=== PATIENT | female | born 2005 | race Caucasian/White ===

== ENCOUNTER 2024-02-28 19:55 | Emergency (ER) | payer OTHER ==
--- OUTSIDE RECORDS SUMMARY | 2024-02-28 19:59 | XMS REPORT | Continuity of Care Document ---
Author Name Unknown Address [address] [facility] [address] [place] [address] [facility] thconnect Address [address] [facility] [address] [place] [address] Care Team Providers Care [employer] Name Role Phone Memo Hwang Primary Care Physician [phone] XANDER HANNA Attending Clinician Unavailable Xander Burnham Attending Clinician [phone] Unknown, Attending Attending Clinician Unavailab Collins Attending Clinician UnavailShea Beltran MD Attending Clinician +- [phone] Alaina Booth MD Attending Clinician [phone] ALAINA BOOTH Attending Clinician Unavailable Alton Malloy Attending Clinician Unavailable Bryce Schrader Attending Clinician Unavailable SHEA DOMINGUEZ Attending Clinician ROMA Doss III Attending Clinician Unavaillida e Provider, [facility] Attending Clinician Unavailable Roma Lovell MD Attending Clinician [phone] UNKNOWN, ATTENDING Attending Clinician Unavailab taylor Doctor Unassigned, [place] Attending Clinician U ALIRIO Luke Attending Clinician Unavailable Alirio Puckett DO Attending Clinician [phone] Rosalee Admitting Clinician UnavailAlton Pimentel Admitting Clinician Unavailable UNDEFINED Admitting Clinician Unavailable ALIRIO PUCKETT Admitting Clinician Unavailable Payers Payer Name Policy Type Policy Number Effective Date Expirati on Date Source BCBS [facility] [id number] 2022 00:00:[place] [id number] 2022 00:00:00 Problems Condition Name Condition Details Condition Category Status Onset Date Resolution Date Last Treatment Date Treating Clinician Comments Source Hyperlipid emia Hyperlipid emia Problem Active 05-01 00:00: 00 [facility] Urticaria due to cold Urticaria Due to Cold Problem Active 07-24 00:00: 00 [facility] Migraine Migraine Problem Active 06-14 00:00: 00 [facility] Moderate persistent asthma Moderate Persistent Asthma Problem Active 06-14 00:00: 00 [facility] No known active problems No known active problems Disease [facility] Allergies, Adverse Reactions, Alerts Allergy Name Allergy Type Status Severity Reaction(s) Onset Date Inactive Date Treating Clinician Comments Source No Known Allergie s DA Active U 4 00:00: 00 [facility] CAT DANDER Allergy to substanc e Active Itching, Respiratory distress [facility] Dog Dander Allergy to substanc e Active Itching, Respiratory distress [facility] NO KNOWN ALLERGIE S Drug Class Active [facility] Social History Social Habit Start Date Stop Date Quantity Comments Source [facility] of Social function 2024-02-27 00:00:00 2024-02-27 00:00:00 [facility] Exposure to SARS-CoV-2 (event) 2022-12-12 00:00:00 2022-12-22 08:43:00 Not sure [facility] Tobacco use and exposure 2022-10-27 00:00:00 2022-10-27 00:00:00 Smokeless tobacco non-user [facility] Sex Assigned At 2005 00:00:00 2005 00:00:00 [facility] Smoking Status Start Date Stop Date Source Tobacco smoking consumption unknown [facility] Never smoked tobacco [facility] Medications Ordered Medication Name Filled Medication Name Start Date Stop Date Current Medication? Ordering Clinician Indication Dosage Frequency Signature (SIG) Comments Components Source codeine-gua ifenesin 10-100 mg/5 mL oral solution 02-26 00:00: 00 03-06 04:59 :00 Yes [id number] 5mL Take 5 mL by mouth every 6 (six) hours as needed for Cough for up to 7 days. Indication s: acute pain [facility] albuterol (PROVENTIL) 2.5 mg /3 mL (0.083 %) nebulizer solution 2.5 mg 04-21 22:00: 00 04-21 21:07 :00 No [id number] 2.5mg [facility] methylpredn isolone sod succ (SOLU-MEDRO L) injection 125 mg 04-21 21:45: 00 04-21 21:06 :00 No [id number] 125mg [facility] ipratropium (ATROVENT) 0.02 % nebulizer solution 0.5 mg 04-21 21:45: 00 04-21 21:08 :00 No [id number] .5mg [facility] budesonide- formoteroL 80-4.5 mcg/actuati on inhaler 04-21 16:13: 40 04-21 00:00 :00 No Symbicort 80 mcg-4.5 mcg/actuat ion HFA aerosol inhaler Inhale 2 puffs twice a day by inhalation route. [facility] escitalopra m oxalate 5 mg tablet 04-21 16:13: 26 Yes escitalopr am 5 mg tablet Take 1 tablet every day by oral route for 30 days. [facility] cetirizine 10 mg tablet 04-21 16:13: 26 Yes cetirizine 10 mg tablet Take 1 tablet every day by oral route in the morning for 90 days. Allergy medication [facility] Fluticasone Propionate 250 mcg/actuati on inhalation disk 04-21 16:13: 26 Yes Flovent Diskus 250 mcg/actuat ion powder for inhalation Inhale 1 puff twice a day by inhalation route. [facility] Fluticasone Propionate 250 mcg/actuati on inhalation disk 04-21 16:13: 26 Yes Flovent Diskus 250 mcg/actuat ion powder for inhalation Inhale 1 puff twice a day by inhalation route. [facility] albuterol 2.5 mg /3 mL (0.083 %) nebulizer solution 04-21 00:00: 00 Yes [id number] 2.5mg Inhale 3 mL every 4 (four) hours as needed for Shortness of Breath or Wheezing. [facility] ipratropium 0.02 % nebulizer solution 04-21 00:00: 00 Yes [id number] .5mg Inhale 2.5 mL every 4 (four) hours as needed for Wheezing or Shortness of Breath. [facility] montelukast (SINGULAIR) 10 mg tablet 04-21 00:00: 00 Yes [id number] 10mg Take 1 tablet by mouth in the morning. [facility] gabapentin 300 mg capsule 03-16 00:00: 00 Yes TAKE 1 CAPSULE BY MOUTH EVERY 8 HOURS [facility] meloxicam 15 mg tablet 03-16 00:00: 00 Yes 15mg Take 1 tablet by mouth in the morning. [facility] azithromyci n 250 mg tablet 12-22 00:00: 00 04-21 00:00 :00 No [id number] 250mg Take 1 tablet by mouth in the morning. [facility] EPINEPHrine 1:1,000 (1 mg/mL) (ADRENALIN) injection 0.3 mg 12-10 06:00: 00 12-10 17:59 :00 No [id number] .3mg [facility] methylPREDN ISolone sod succ (SOLU-MEDRO L (PF)) injection 125 mg 12-10 06:00: 00 12-10 17:59 :00 No [id number] 125mg [facility] diphenhydrA MINE (BENADRYL) 12.5 mg/5 mL solution 25 mg 12-10 06:00: 00 12-10 17:59 :00 No [id number] 25mg [facility] albuterol (PROVENTIL) 2.5 mg /3 mL (0.083 %) nebulizer solution 2.5 mg 12-10 06:00: 00 12-10 17:59 :00 No [id number] 2.5mg [facility] ondansetron 4 mg disintegrat ing tablet 2021-11 00:00: 00 12-22 00:00 :00 No [id number] 4mg Take 1 tablet by mouth every 8 (eight) hours as needed for Nausea and Vomiting (N/V). [facility] oseltamivir (TAMIFLU) 75 mg capsule 2021-11 00:00: 00 11-02 05:59 :00 No [id number] 75mg Take 1 capsule by mouth in the morning and 1 capsule in the evening. Do all this for 5 days. [facility] albuterol 2.5 mg /3 mL (0.083 %) nebulizer solution 2021-11 00:00: 00 Yes [id number] 2.5mg Inhale 3 mL every 4 (four) hours. May also nebulize one extra every 6 hours. [facility] methylPREDN ISolone (MEDROL, HELENA,) 4 mg tablets 2021-11 00:00: 00 10-27 00:00 :00 No [id number] Take by mouth SEE-INSTRU CTIONS. follow package directions [facility] albuterol sulfate HFA 90 mcg/actuati on aerosol inhaler INHALE 2 PUFFS BY MOUTH EVERY 4 HOURS NEEDED albuterol sulfate HFA 90 mcg/actuati on aerosol inhaler INHALE 2 PUFFS BY MOUTH EVERY 4 HOURS NEEDED No albuterol sulfate HFA 90 mcg/actuat ion aerosol inhaler INHALE 2 PUFFS BY MOUTH EVERY 4 HOURS NEEDED [facility] bromphenira mine-pseudo ephedrine-D M 2 mg-30 mg-10 mg/5 mL oral syrup TAKE 10 ML BY MOUTH EVERY 4 HOURS NEEDED bromphenira mine-pseudo ephedrine-D M 2 mg-30 mg-10 mg/5 mL oral syrup TAKE 10 ML BY MOUTH EVERY 4 HOURS NEEDED No bromphenir amine-pseu doephedrin e-DM 2 mg-30 mg-10 mg/5 mL oral syrup TAKE 10 ML BY MOUTH EVERY 4 HOURS NEEDED [facility] Estarylla 0.25 mg-35 mcg tablet TAKE 1 TABLET BY MOUTH EVERY DAY Estarylla 0.25 mg-35 mcg tablet TAKE 1 TABLET BY MOUTH EVERY DAY No Estarylla 0.25 mg-35 mcg tablet TAKE 1 TABLET BY MOUTH EVERY DAY [facility] montelukast 10 mg tablet Take 1 tablet every day by oral route for 30 days. montelukast 10 mg tablet Take 1 tablet every day by oral route for 30 days. No 1 Q1D montelukas t 10 mg tablet Take 1 tablet every day by oral route for 30 days. [facility] prednisone 20 mg tablet TAKE 2 TABLETS BY MOUTH DAILY prednisone 20 mg tablet TAKE 2 TABLETS BY MOUTH DAILY No prednisone 20 mg tablet TAKE 2 TABLETS BY MOUTH DAILY [facility] Wixela Inhub 250 mcg-50 mcg/dose powder for inhalation Inhale 1 puff twice a day by inhalation route for 30 days. Wixela Inhub 250 mcg-50 mcg/dose powder for inhalation Inhale 1 puff twice a day by inhalation route for 30 days. No 1puff(s ) BID Wixela Inhub 250 mcg-50 mcg/dose powder for inhalation Inhale 1 puff twice a day by inhalation route for 30 days. [facility] Vital Signs Vital Name Observation Time Observation Value Comments S giovani Systolic blood pressure 2024-02-27 22:23:00 135 mm[Hg] [place] [facility] Diastolic blood pressure 2024-02-27 22:23:00 84 mm[Hg] [place] [facility] Heart rate 2024-02-27 22:23:00 99 /min [facility] Body temperature 2024-02-27 22:23:00 36.61 Freda [facility] Body height 2024-02-27 22:23:00 167.6 cm [facility] Body weight 2024-02-27 22:23:00 89.359 kg [facility] BMI 2024-02-27 22:23:00 31.80 kg/m2 [facility] Oxygen saturation in Arterial blood by Pulse oximetry 2024-02-27 22:23:00 96 /min [facility] BP Systolic 2024-02-21 00:00:00 117 mm[Hg] [facility] Height 2024-02-21 00:00:00 66 [in_i] [facility] BMI (Body Mass Index) 2024-02-21 00:00:00 32.8 kg/m2 [facility] ly Practice BP Diastolic 2024-02-21 00:00:00 77 mm[Hg] [facility] Body Weight 2024-02-21 00:00:00 203 [facility] 2023-09-07 00:00:00 187 [lb_av] [facility] BP Diastolic 2023-09-07 00:00:00 80 mm[Hg] [facility] BP Systolic 2023-09-07 00:00:00 120 mm[Hg] [facility] Height 2023-09-07 00:00:00 66 [in_i] [facility] BMI (Body Mass Index) 2023-09-07 00:00:00 30.2 kg/m2 [facility] BP Diastolic 2023-05-12 00:00:00 77 mm[Hg] [facility] Height 2023-05-12 00:00:00 66 [in_i] [facility] BMI (Body Mass Index) 2023-05-12 00:00:00 29 kg/m2 [facility] Practice BP Systolic 2023-05-12 00:00:00 105 mm[Hg] [facility] Body Weight 2023-05-12 00:00:00 179.9 [facility]lb_av[facility] Diastolic 2023-04-27 00:00:00 74 mm[Hg] [facility] Height 2023-04-27 00:00:00 66 [in_i] [facility] BMI (Body Mass Index) 2023-04-27 00:00:00 27.6 kg/m2 [facility] Practice BP Systolic 2023-04-27 00:00:00 120 mm[Hg] [facility] Body Weight 2023-04-27 00:00:00 171 [lb_av] [facility] Practice Heart rate 2023-04-21 21:32:00 112 /min [facility] Respiratory rate 2023-04-21 21:32:00 17 /min [facility] Oxygen saturation in Arterial blood by Pulse oximetry 2023-04-21 21:32:00 96 /min [facility] Oxygen saturation in Arterial blood by Pulse oximetry 2023-04-21 21:05:00 95 /min [facility] Systolic blood pressure 2023-04-21 21:00:00 106 mm[Hg] [facility] Diastolic blood pressure 2023-04-21 21:00:00 68 mm[Hg] [facility] Heart rate 2023-04-21 21:00:00 140 /min [facility] Respiratory rate 2023-04-21 21:00:00 38 /min [facility] Body height 2023-04-21 21:00:00 167.6 cm [facility] Body weight 2023-04-21 21:00:00 78.608 kg [facility] BMI 2023-04-21 21:00:00 27.97 kg/m2 [facility] Body temperature 2023-04-21 21:00:00 37.33 Freda [facility] BP Diastolic 2023-04-20 00:00:00 60 mm[Hg] [facility] Practice Height 2023-04-20 00:00:00 66 [in_i] [facility] BMI (Body Mass Index) 2023-04-20 00:00:00 27.6 kg/m2 [facility] Practice BP Systolic 2023-04-20 00:00:00 101 mm[Hg] [facility] Body Weight 2023-04-20 00:00:00 171 [lb_av] [facility] Practice Systolic blood pressure 2022-12-22 14:55:00 120 mm[Hg] [facility] Diastolic blood pressure 2022-12-22 14:55:00 76 mm[Hg] [facility] Heart rate 2022-12-22 14:55:00 86 /min [facility] Body temperature 2022-12-22 14:55:00 36.61 Freda [facility] Respiratory rate 2022-12-22 14:55:00 18 /min [facility] Body weight 2022-12-22 14:55:00 80.287 kg [facility] Oxygen saturation in Arterial blood by Pulse oximetry 2022-12-22 14:55:00 96 /min [facility] Body temperature 2022-12-11 03:01:00 37.11 Freda [facility] Respiratory rate 2022-12-11 03:01:00 17 /min [facility] Body height 2022-12-11 03:01:00 167.6 cm [facility] Body weight 2022-12-11 03:01:00 76.204 kg [facility] BMI 2022-12-11 03:01:00 27.12 kg/m2 [facility] Body mass index (BMI) [Percentile] Per age and sex 2022-12-11 03:01:00 88.44 % [facility] Oxygen saturation in Arterial blood by Pulse oximetry 2022-12-11 03:01:00 93 /min [facility] Systolic blood pressure 2022-12-11 03:01:00 143 mm[Hg] [facility] Diastolic blood pressure 2022-12-11 03:01:00 85 mm[Hg] [facility] Heart rate 2022-12-11 03:01:00 145 /min [facility] Systolic blood pressure 2022-10-27 16:50:00 102 mm[Hg] [facility] Diastolic blood pressure 2022-10-27 16:50:00 66 mm[Hg] [facility] Heart rate 2022-10-27 16:49:00 115 /min [facility] Body temperature 2022-10-27 16:49:00 36.83 Freda [facility] Respiratory rate 2022-10-27 16:49:00 18 /min [facility] Body height 2022-10-27 16:49:00 167.6 cm [facility] Body weight 2022-10-27 16:49:00 76.522 kg [facility] BMI 2022-10-27 16:49:00 27.23 kg/m2 [facility] Body mass index (BMI) [Percentile] Per age and sex 2022-10-27 16:49:00 88.89 % [facility] Oxygen saturation in Arterial blood by Pulse oximetry 2022-10-27 16:49:00 97 /min [facility] BP Diastolic 2022-09-18 00:00:00 76 mm[Hg] [facility] Height 2022-09-18 00:00:00 66 [in_i] [facility] BMI (Body Mass Index) 2022-09-18 00:00:00 27.1 kg/m2 [facility] BP Systolic 2022-09-18 00:00:00 122 mm[Hg] [facility] Body Weight 2022-09-18 00:00:00 168 [lb_av] [facility] Heart rate 2022-08-22 03:02:00 88 /min [facility] Respiratory rate 2022-08-22 03:02:00 15 /min [facility] Oxygen saturation in Arterial blood by Pulse oximetry 2022-08-22 03:02:00 95 /min [facility] Systolic blood pressure 2022-08-22 03:00:00 108 mm[Hg] [facility] Diastolic blood pressure 2022-08-22 03:00:00 88 mm[Hg] [facility] Body temperature 2022-08-22 01:59:00 37.33 Freda [facility] Body height 2022-08-22 01:59:00 167.6 cm [facility] Body weight 2022-08-22 01:59:00 71.668 kg [facility] BMI 2022-08-22 01:59:00 25.50 kg/m2 [facility] Body mass index (BMI) [Percentile] Per age and sex 2022-08-22 01:59:00 83.11 % [facility] BP Systolic 2021-08-08 00:00:00 130 mm[Hg] [facility] Body Weight 2021-08-08 00:00:00 172 [lb_av] [facility] BP Diastolic 2021-08-08 00:00:00 82 mm[Hg] [facility] Height 2021-08-08 00:00:00 66 [in_i] [facility] BMI (Body Mass Index) 2021-08-08 00:00:00 27.8 kg/m2 [facility] BP Diastolic 2020-07-24 00:00:00 75 mm[Hg] [facility] BP Systolic 2020-07-24 00:00:00 113 mm[Hg] [facility] BP Diastolic 2019-06-14 00:00:00 80 mm[Hg] [facility] Height 2019-06-14 00:00:00 66 [in_i] [facility] BMI (Body Mass Index) 2019-06-14 00:00:00 25.8 kg/m2 [facility] BP Systolic 2019-06-14 00:00:00 124 mm[Hg] [facility] Body Weight 2019-06-14 00:00:00 160 [lb_av] [facility] Procedures Procedure Date / Time Performed Performing Clinician Source POCT MOLECULAR STREP 2024-02-27 22:53:00 Unknown, Lindy connors [facility] SPRIOMETRY: PRE AND POST BRONCHODILATION 2023-04-23 00:00:00 [facility] spirometry, pre and post bronchodilation 2023-04-23 00:00:00 [facility] Pelvis Repair 2023-03-08 00:00:00 [facility] [id number] 2023-03-06 00:00:00 [facility] [id number] 2023-03-06 00:00:00 [facility] POCT MOLECULAR STREP 2022-12-22 15:20:00 Shea Salazar [facility] POCT MOLECULAR FLU 2022-10-27 16:51:00 Unknown, Attend ing [facility] ASSIGNMENT OF BENEFITS 2022-10-27 16:40:10 Docto r Unassigned, [place] [facility] XR CHEST 1 VW 2022-08-22 02:13:53 Alirio Puckett [facility] Other [facility] Plan of Care Planned Activity Planned Date Details Comments Source Future Appointment 2024-05-01 14:00:00 Sarah burch, [address]; [address], [place] [address] [facility] Instructions [facility] En[facility] Start Date/Time End Date/Time Encounter Type Admission Type Attending Clinicians Care Facility Care Department Encounter ID Source 2024-02-27 17:20:00 2024-02-27 18:20:15 Outpatient R XANDER HANNA [facility] [id number] [facility] 2024-02-27 17:20:00 2024-02-27 18:20:15 Urgent Care Xander Hanna Unknown, [facility] 1..840.114 [id number] [facility] 2024-02-21 00:00:00 2024-02-21 00:00:00 DEL Castellon: [address], [address], [place] [address] , Ph. VFP [place] - [facility] - [place] - KAREEM_KELLYU_[facility] ([facility]) [id number] [facility] e 2024-01-03 00:00:00 2024-01-03 00:00:00 Outpatient Rachel ROSA VFP VFP [id number] [facility] Pract[facility] e 2023-12-13 00:00:00 2023-12-13 00:00:00 Shea Schneider [facility] 1..840.114 [id number] [id number] [facility] 2023-10-02 00:00:00 2023-10-02 00:00:00 Outpatient Fiesinger_T _HOU_MD VFP VFP [id number] [facility] 2023-09-07 00:00:00 2023-09-07 00:00:00 Outpatient Fiesinger_T _HOU_MD VFP VFP [id number] [facility] 2023-09-07 00:00:00 2023-09-07 00:00:00 Outpatient VFP VFP [id number] [facility] 2023-09-07 00:00:00 2023-09-07 00:00:00 DEL Castellon: [address] [place] [phone] , Ph. VFP [place] - [facility] - [place] - VM_HOU_[facility] ([place]) [id number] [facility] 2023-06-14 00:00:00 2023-06-14 00:00:00 Outpatient Fiesinger_T _HOU_MD VFP VFP [id number] [facility] 2023-05-29 00:00:00 2023-05-29 00:00:00 Outpatient Fiesinger_T _HOU_MD VFP VFP [id number] [facility] 2023-05-12 00:00:00 2023-05-12 00:00:00 Outpatient Fiesinger_T _HOU_MD VFP VFP [id number] [facility] 2023-05-12 00:00:00 2023-05-12 00:00:00 Outpatient VFP VFP [id number] [facility] 2023-05-12 00:00:00 2023-05-12 00:00:00 DEL Castellon: [address] [place] [phone] , Ph. VFP [place] [facility] - [place] - VM_HOU_[facility] ([facility]) [id number] [facility] 2023-04-30 00:00:2023-04-30 00:00:00 Refill Alaina Booth [facility] [id number] [id number] [id number] [facility] 2023-04-27 00:00:00 2023-04-27 00:00:00 Outpatient Fiesinger_T _HOU_MD VFP [facility] [id number] [facility] 2023-04-27 00:00:00 2023-04-27 00:00:00 Sarah Seth, PA: [address] [place], [place] [phone] , [facility]. [facility] - [place] - VM_HOU_[facility] ([facility]) [id number] [facility] 2023-04-23 00:00:00 2023-04-23 00:00:00 Outpatient Fiesinger_T _HOU[facility] [id number] [facility] 2023-04-23 00:00:00 2023-04-23 00:00:00 Sarah Seth PA: [address] [place] [phone] , [facility]. [facility] - [place] - VM_HOU_[facility] ([facility]) [id number] [facility] 2023-04-21 15:40:00 2023-04-21 16:23:44 Outpatient R ALAINA BOOTH [facility] [id number] [facility] 2023-04-21 15:40:00 2023-04-21 16:23:44 Urgent Care Alaina Booth Unknown, Attending [facility] [id number] 350.1.13.10 [id number] [id number] [facility] 2023-04-21 00:00:00 2023-04-21 00:00:00 Alaina Wilkins [facility] [id number] [id number] [id number] [facility] 2023-04-20 00:00:00 2023-04-20 00:00:00 Outpatient Fiesinger_T _HOU_MD VFP VFP [id number] [facility] 2023-04-20 00:00:00 2023-04-20 00:00:00 Outpatient Fiesinger_T _HOU_MD VFP VFP [id number] [facility] 2023-04-20 00:00:00 2023-04-20 00:00:00 DEL Castellon: [address] [place] [address] [address], [place] [address] , Ph. VFP [place] - [facility] [place] - VM_HOU_[facility] ([facility]) [id number] [facility] 2023-04-17 00:00:00 2023-04-17 00:00:00 Outpatient Fiesinger_T _HOU_MD VFP VFP [id number] [facility] 2023-04-17 00:00:00 2023-04-17 00:00:00 Outpatient VFP VFP [id number] [facility] 2023-04-17 00:00:00 2023-04-17 00:00:00 Outpatient Fiesinger_T _HOU_MD VFP VFP [id number] [facility] 2023-04-14 00:00:00 2023-04-14 00:00:00 Outpatient Fiesinger_T _HOU_MD VFP VFP [id number] [facility] 2023-03-12 00:00:00 2023-03-12 00:00:00 Shea Schneider [facility] [id number] [id number] [id number] [facility] 2023-03-04 18:35:00 2023-03-07 13:43:00 Inpatient EM Alton Malloy [facility] [id number] [facility] 2023-03-04 09:00:00 2023-03-04 17:00:00 Emergency EM Bryec Schrader [facility] [id number] [facility] 2023-02-16 00:00:00 2023-02-16 00:00:00 Refill Kimberly cook [facility] 1.2.840.114 350.1.13.10 4.2.7.2.686 [id number] [facility] 2023-01-22 00:00:00 2023-01-22 00:00:00 Refill Kimberly cook [facility] 1.2840.114 350.1.13.10 4.2.7.2.686 [id number] [facility] 2022-12-27 00:00:00 2022-12-27 00:00:00 Outpatient Fiesinger_T VFP VFP [id number] [facility] 2022-12-22 08:40:00 2022-12-22 09:33:41 Outpatient R KIMBERLY COOK [facility] [id number] [facility] 2022-12-22 08:40:00 2022-12-22 09:33:41 Office Visit Kimberly cook [facility] 1.2.840.114 350.1.13.10 4.2.7.2.686 [id number] [facility] 2022-12-22 00:00:00 2022-12-22 00:00:00 Letter (Out) Kimberly cook [facility] 1.2840.114 350.1.13.10 4.2.7.2.686 [id number] [facility] 2022-12-10 20:40:00 2022-12-10 21:15:04 Outpatient R ROMA LOVELL III [facility] [id number] [facility] 2022-12-10 20:40:00 2022-12-10 21:15:04 Urgent Care Provider, [facility] Unknown, Attending Roma Lovell [facility] 1.840.114 350.1.13.10 4.2.7.2.686 [id number] [facility] 2022-12-10 20:30:00 2022-12-10 20:30:00 Outpatient R UNKNOWN, ATTENDING [facility] [id number] [facility] 2022-11-22 00:00:00 2022-11-22 00:00:00 Outpatient Fiesinger_T VFP VFP [id number] [facility] 2022-11-18 00:00:00 2022-11-18 00:00:00 Refill Alaina Booth [facility] 1.840.114 350.1.13.10 4.2.7.2.686 [id number] [facility] 2022-10-27 10:40:00 2022-10-27 11:05:11 Outpatient R ALAINA BOOTH [facility] [id number] [facility] 2022-10-27 10:40:00 2022-10-27 11:05:11 Urgent Care Alaina Booth Unknown, Attending [facility] 1.840.114 350.1.13.10 4.2.7.2.686 [id number] [facility] 2022-10-27 00:00:00 2022-10-27 00:00:00 Orders Only Doctor Unassigned, [facility] 1.84.114 350.1.13.10 4.2.7.2.686 [id number] [facility] 2022-10-27 00:00:00 2022-10-27 00:00:00 Letter (Out) Provider, [facility] 1.2.840.114 350.1.13.10 4.2.7.2.686 [id number] [facility] 2022-09-18 00:00:00 2022-09-18 00:00:00 Outpatient Fiesinger_T VFP VFP [id number] [facility] 2022-09-18 00:00:00 2022-09-18 00:00:00 Coty Hernandez MD: [id number] [facility], [address], [place] [address] , Ph. VFP [place] - [facility] - [place] - _NAOMI_Troy Chris [id number] [facility] 2022-09-15 00:00:00 2022-09-15 00:00:00 Outpatient Fiesinger_T VFP VFP [id number] [facility] 2022-09-08 00:00:00 2022-09-08 00:00:00 Outpatient Fiesinger_T VFP VFP [id number] [facility] 2022-08-21 20:56:00 2022-08-21 22:15:00 Emergency X ALIRIO PUCKETT [facility] ERT [id number] [facility] 2022-08-21 20:56:00 2022-08-21 22:15:00 Emergency Alirio Puckett [facility] 1.2.840.114 350.1.13.10 4.2.7.2.686 [id number] [facility] 2021-09-23 08:11:00 2021-09-23 08:11:00 Outpatient Fiesinger_T VFP VFP [id number] [facility] 2021-09-04 01:56:00 2021-09-04 01:56:00 Outpatient Fiesinger_T VFP VFP [id number] [facility] 2021-08-29 06:51:00 2021-08-29 06:51:00 Outpatient Fiesinger_T VFP VFP [id number] [facility] 2021-08-08 05:19:00 2021-08-08 05:19:00 Outpatient Fiesinger_T VFP VFP [id number] [facility] 2021-08-08 00:00:00 2021-08-08 00:00:00 Memo Hwang MD: [id number] [facility], [address], [place] [address] , Ph. VFP [place] [facility] - KAREEM_NAOMI_Troy woody Aries [id number] [facility] 2021-06-03 03:43:00 2021-06-03 03:43:00 Outpatient Fiesinger_T VFP VFP [id number] [facility] 2021-06-03 03:43:00 2021-06-03 03:43:00 Outpatient Fiesinger_T VFP VFP [id number] [facility] 2021-06-03 03:43:00 2021-06-03 03:43:00 Outpatient VFP VFP [id number] [facility] 2020-08-09 01:03:00 2020-08-09 01:03:00 Outpatient Fiesinger_T VFP VFP [id number] [facility] 2020-07-26 08:53:00 2020-07-26 08:53:00 Outpatient Fiesinger_T VFP VFP [id number] [facility] 2020-07-25 08:47:00 2020-07-25 08:47:00 Outpatient Fiesinger_T VFP VFP [id number] [facility] 2020-07-24 06:00:00 2020-07-24 06:00:00 Outpatient Fiesinger_T VFP VFP [id number] [facility] 2020-07-24 00:00:00 2020-07-24 00:00:00 Memo Hwang MD: [id number] [facility], [facility] [address], [place] [address] , Ph. P [place] - [facility] - [place] Chris [id number] [facility] 2020-03-08 06:51:00 2020-03-08 06:51:00 Outpatient Fiesinger_T VFP VFP [id number] [facility] 2020-02-15 04:13:00 2020-02-15 04:13:00 Outpatient Fiesinger_T VFP VFP [id number] [facility] 2020-01-30 09:30:00 2020-01-30 09:30:00 Outpatient Fiesinger_T VFP VFP [id number] [facility] 2020-01-30 09:30:00 2020-01-30 09:30:00 Outpatient VFP VFP [id number] [facility]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
[2024-02-28] MEDS ORDERED: NA CHLORIDE 0.9% 1,000 ML ONE (21:07)
[2024-02-28] MEDS ORDERED: ONDANSETRON 4 MG/2 ML VIAL ONE (21:07)
[2024-02-28] MEDS ORDERED: FAMOTIDINE 20 MG/2 ML VIAL IV ONE (21:07)
[2024-02-28 21:20] LABS: Absolute Basophils 0.1 K/uL (0-0.5); Absolute Eosinophils 0.1 K/uL (0-0.5); Absolute Lymphocytes (CBC) 3.2 K/uL (0.7-4.9); Absolute Monocytes 0.9 K/uL (0.1-1.3); Absolute Neutrophil 12.3 K/uL (1.8-8.0); Basophils % 0.4 % (0-1.3); Eosinophils % 0.5 % (0-4.4); Hematocrit 44.3 % (36.0-45.0); Hemoglobin 14.7 g/dL (12.0-15.0); Lymphocytes % 19.4 % (15.3-44.8); MCHC 33.2 g/dL (32.0-36.0); MCV 84.1 fL (80-100); Monocytes % 5.3 % (3.3-12.3); Neutrophils % 74.4 % (41.7-73.7); Nucleated Red Blood Cells % 0.1 % (0-0); Platelets 383 thou/uL (152-406); RBC Red Blood Cell Count 5.27 M/uL (3.86-4.86); Red Cell Distribution Width 13.3 % (12.1-15.2)
[2024-02-28 21:21] LABS: Specific Gravity > 1.030 (1.005-1.030)
[2024-02-28 21:23] LABS: Specific Gravity > 1.030 (1.005-1.030); Sqamous Epithelial 20-50 /HPF (None Seen); Urine Bacteria >50 /HPF (<20); Urine Bilirubin 2+ (Negative); Urine Blood Trace (Negative); Urine Clarity Extremely Turbid (Clear); Urine Color Dark-Yellow (Yellow); Urine Culture Reflex Order NOT NEEDED; Urine Glucose NEGATIVE (Negative); Urine Ketones 3+ (Negative); Urine Microscopic Reflex YN ORDER UMIC; Urine Mucus 1+ /HPF (None Seen); Urine Nitrite NEGATIVE (Negative); Urine Protein 1+ (Negative); Urine RBC 21-50 /HPF (None Seen); Urine Urobilinogen 4+ (Over) (Normal); Urine WBC 20-50 /HPF (<5)
[2024-02-28 21:32] LABS: Albumin 3.7 g/dL (3.4-5.0); Albumin/Globulin Ratio 0.8 (1.1-1.8); Anion Gap 11.7 mEq/L (5.0-15.0); Bilirubin Total 1.8 mg/dL (0.2-1.0); Globulin 4.7 g/dL (2.3-3.5); Potassium 3.7 mEq/L (3.5-5.1); Protein, Total 8.4 g/dL (6.4-8.2)
[2024-02-28] MEDS ORDERED: CEFTRIAXONE 1000 MG/VIAL ONE (21:38)
--- NOTE | 2024-02-28 21:38 | RAD REPORT ---
EXAM DESCRIPTION: RAD - Chest Single View - 02/28/2024 9:31 pm CLINICAL HISTORY: CONGESTION Chest pain. COMPARISON: No comparisons FINDINGS: Portable technique limits examination quality. The lungs are grossly clear. The heart is normal in size. No displaced fractures. IMPRESSION: No acute intrathoracic process suspected.
--- NOTE | 2024-02-28 23:16 | EDPHYS ---
Physician Documentation [facility] Name: Gudelia Mckee Age: 18 yrs Sex: Female : 2005 Arrival Date: 02/28/2024 Time: 19:55 Bed 9 Private MD: ED Physician Amanda Young HPI: 02/27 20:49 This 18 yrs old Female presents to ER via Ambulatory with complaints of Cough, ci Congestion, Nausea/Vomiting. 20:49 This 18 yrs old Female presents to ER via Ambulatory with complaints of Cough, ci Congestion, Nausea/Vomiting. 20:49 Patient is a 18-year-old female with PMH anxiety who presents to the ED with chief ci complaint cough, congestion that began on 02/16/2024. Patient has seen her PCP, to urgent cares and went to [facility] yesterday for similar complaint. Patient reports she has had nonproductive cough, went to the next level urgent care, was given cough meds and prednisone which seemed to help her symptoms but symptoms returned on Wednesday. Patient saw her PCP who started her on Singulair thinking it was due to her asthma. Patient states since Wednesday she has had cough, with nausea/vomiting. No hematemesis. Patient has lost her voice as a result of her symptoms. Denies fever, abdominal pain, diarrhea, constipation.. 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 - Infectious Disease History:: Denies. - Social history:: Smoking status: Patient/guardian denies using tobacco, Stopped _ months ago 6 Patient/guardian denies using alcohol, street drugs. ROS: 20:49 Constitutional: Negative for fever, chills, and weight loss, ci 20:49 ENT: Positive for hoarseness, sinus congestion, 20:49 Respiratory: Positive for cough, Negative for shortness of breath, wheezing, 20:49 Abdomen/GI: Positive for nausea and vomiting, Negative for diarrhea, constipation, hematemesis, Exam: 20:49 Constitutional: This is a well developed, well nourished patient who is awake, alert, ci and in no acute distress. Head/Face: Normocephalic, atraumatic. Eyes: Pupils equal round and reactive to light, extra-ocular motions intact. Lids and lashes normal. Conjunctiva and sclera are non-icteric and not injected. Cornea within normal limits. Periorbital areas with no swelling, redness, or edema. 20:49 ENT: Nares patent. No nasal discharge, no septal abnormalities noted. Tympanic membranes are normal and external auditory canals are clear. Oropharynx with no redness, swelling, or masses, exudates, or evidence of obstruction, uvula midline. Mucous membranes moist. Neck: Trachea midline, no thyromegaly or masses palpated, and no cervical lymphadenopathy. Supple, full range of motion without nuchal rigidity, or vertebral point tenderness. No Meningismus. Chest/axilla: Normal chest wall appearance and motion. Nontender with no deformity. No lesions are appreciated. Cardiovascular: Regular rate and rhythm with a normal S1 and S2. No gallops, murmurs, or rubs. Normal PMI, no JVD. No pulse deficits. Respiratory: Lungs have equal breath sounds bilaterally, clear to auscultation and percussion. No rales, rhonchi or wheezes noted. No increased work of breathing, no retractions or nasal flaring. Abdomen/GI: Soft, non-tender, with normal bowel sounds. No distension or tympany. No guarding or rebound. No evidence of tenderness throughout. Back: No spinal tenderness. No costovertebral tenderness. Full range of motion. Skin: Warm, dry with normal turgor. Normal color with no rashes, no lesions, and no evidence of cellulitis. MS/ Extremity: Pulses equal, no cyanosis. Neurovascular intact. Full, normal range of motion. Neuro: Awake and alert, GCS 15, oriented to person, place, time, and situation. Cranial nerves II-XII grossly intact. Motor strength 5/5 in all extremities. Sensory grossly intact. Cerebellar exam normal. Normal gait. Psych: Awake, alert, with orientation to person, place and time. Behavior, mood, and affect are within normal limits. 20:49 ENT: Voice: is hoarse, 20:50 ECG was reviewed by the Attending Physician. EKG shows normal sinus rhythm, HR 67, no ci acute ischemic changes. Vital Signs: 20:11 BP 132 / 96; Pulse 97; Resp 16; Temp 97.1(TE); Pulse Ox 99% on R/A; Weight 89.36 kg km8 (R); Height 5 ft. 6 in. (R); Pain 7/10; 21:18 BP 138 / 87; Pulse 83; Resp 19; Pulse Ox 96% on R/A; me1 22:00 BP 123 / 85; Pulse 81; Resp 18; Pulse Ox 97% on R/A; me1 23:00 BP 126 / 63; Pulse 78; Resp 16; Pulse Ox 99% ; me1 20:11 Body Mass Index 31.80 (89.36 kg, 167.64 cm) [facility] 20:11 Pain Scale: Adult km8 MDM: 20:17 Patient medically screened. ci 23:21 Differential Diagnosis: Bronchitis Upper Respiratory Infection Pharyngitis Otitis Media ci Asthma Exacerbation Pneumonia Other Gastritis, GERD, gastroenteritis, pancreatitis, UTI. Data reviewed: vital signs, nurses notes. 23:21 ED course: Patient arrived to the ED hemodynamically stable and in no acute distress. ci She has had URI symptoms since 02/15 that was improving, now reoccurred. Completed 20 mg prednisone for 5 days with minimal improvement. Oropharynx with no MANAGER PEOPLE, no oropharyngeal erythema edema. CXR with no consolidations or infiltrates. Patient also endorsing nausea/vomiting, she has no reproducible tenderness to palpation to the abdomen. CBC shows some leukocytosis which is likely related to recent steroid use. Lipase unremarkable, urine hCG negative. UA consistent with UTI, given a gram of Rocephin. Given prolonged symptoms of URI, will cover with cefdinir for UTI and possibly bronchitis. Noted to have a mild BENTLEY with creatinine of 1.08. She was counseled to follow-up very closely with PCP.. 23:21 Counseling: I had a detailed discussion with the patient and/or guardian regarding the ci historical points, exam findings, and any diagnostic results supporting the discharge/admit diagnosis, lab results, the need for outpatient follow up, to return to the emergency department if symptoms worsen or persist or if there are any questions or concerns that arise at home. 02/27 20:29 Order name: CBC with Diff; Complete Time: 21:30 ci 02/27 21:31 Interpretation: Abnormal: WBC 16.50; Has been on steroids, doubt infectious etiology. ci 02/27 20:29 Order name: CMP; Complete Time: 21:50 ci 02/27 21:50 Interpretation: Abnormal: CRE 1.08. ci 02/27 20:29 Order name: Lipase; Complete Time: 21:50 ci 02/27 20:29 Order name: Test, Urine; Complete Time: 21:30 ci 02/27 20:29 Order name: Urinalysis w/ reflexes; Complete Time: 21:30 ci 02/27 21:32 Interpretation: Abnormal: UBACT >50; UWBC 20-50; UESTR 500; UKET 3+. ci 02/27 20:29 Order name: COVID-19 SARS RT PCR; Complete Time: 21:50 ci 02/27 20:29 Order name: Flu; Complete Time: 21:50 ci 02/27 20:29 Order name: RSV; Complete Time: 21:50 ci 02/27 20:29 Order name: Rapid Strep; Complete Time: 21:50 ci 02/27 21:39 Order name: Throat Culture EDME 02/27 20:29 Order name: XRAY Chest (1 view); Complete Time: 21:50 ci 02/27 21:50 Interpretation: No acute disease. ci 02/27 20:29 Order name: IV Saline Lock; Complete Time: 21:04 ci 02/27 20:29 Order name: Labs collected and sent; Complete Time: 21:04 ci 02/27 20:29 Order name: Cardiac monitoring; Complete Time: 22:18 ci 02/27 20:29 Order name: EKG - Nurse/Tech; Complete Time: 22:31 ci Administered Medications: 21:12 Drug: Famotidine IVP 20 mg IVP once; dilute with 10 mL 0.9% NaCl; give over 2 minutes me1 Route: IVP; Site: left antecubital; 21:49 Follow up: Response: No adverse reaction me1 21:12 Drug: Ondansetron IVP 4 mg IVP once; over 2 minutes Route: IVP; Site: left antecubital; me1 21:49 Follow up: Response: No adverse reaction; Nausea is decreased me1 21:12 Drug: NS 0.9% IV 1000 ml IV at 1000 ml once Route: IV; Rate: 1000 ml; Site: left me1 antecubital; 23:29 Follow up: IV Status: Completed infusion; IV Intake: 1000ml me1 23:29 Follow up: Response: No adverse reaction; IV Status: Completed infusion; IV Intake: me1 1000ml 23:29 Follow up: Response: No adverse reaction; IV Status: Completed infusion; IV Intake: me1 1000ml 23:29 Follow up: IV Status: Completed infusion me1 21:49 Drug: Rocephin IV 1 grams IV at calculated rate once; Given slow IV push per pharmacy me1 instructions Route: IV; Rate: calculated rate; Site: left antecubital; 22:18 Follow up: Response: No adverse reaction; IV Status: Completed infusion me1 Disposition Summary: 02/28/24 23:16 Discharge Ordered Notes: Location: Home ci Condition: Stable ci Diagnosis - UTI/ Urinary tract infection, site not specified ci - Acute bronchitis, unspecified ci Followup: ci - With: Private Physician - When: 2 - 3 days - Reason: Recheck today's complaints, Re-evaluation by your physician Discharge Instructions: - Discharge Summary Sheet ci - Urinary Tract Infection, Adult, [id number] ci - Acute Bronchitis, Adult, [id number] ci Forms: - Work release form me1 - Medication Reconciliation Form ci - Antibiotic Education ci - Prescription Opioid Use ci - Patient Portal Instructions ci - Leadership Thank You Letter ci Prescriptions: - cefdinir 300 mg Oral capsule - take 1 capsule ORAL route every 12 hours for 10 days; 20 capsule; Refills: 0, ci Product Selection Permitted Signatures: Dispatcher [facility] Luisa Hu, RN RN me1 Amanda Young Katie, RN RN km8 Corrections: (The following items were deleted from the chart) 20:29 20:29 CBC+H.LAB.BRZ ordered. EDMS EDMS 20:29 20:29 COMPREHENSIVE METABOLIC PANEL+C.LAB.BRZ ordered. EDMS EDMS 20:29 20:29 LIPASE+C.LAB.BRZ ordered. EDMS EDMS 20:29 20:29 Test, Urine+UC.LAB.BRZ ordered. EDMS EDMS 20:29 20:29 Urinalysis+U.LAB.BRZ ordered. EDMS EDMS 20:29 20:29 SARS-COV-2 RT PCR+MOL.LAB.BRZ ordered. EDMS EDMS 20: 20:29 Influenza Screen (A \T\ B)+BA.LAB.BRZ ordered. EDMS EDMS 20: 20:29 Respiratory Syncytial Virus Ag+BA.LAB.BRZ ordered. EDMS EDMS : 20:29 Group A Streptococcus Rapid Sc+BA.LAB.BRZ ordered. EDMS EDMS 20: 20:30 Chest Single View+RAD.RAD.BRZ ordered. EDMS EDMS 02/28 00:30 02/27 23:21 Differential Diagnosis: Bronchitis Upper Respiratory Infection Pharyngitis ci Otitis Media Asthma Exacerbation Pneumonia ci
--- NOTE | 2024-02-28 23:16 | ER ---
Nurse's Notes [facility] Name: Gudelia Mckee Age: 18 yrs Sex: Female : 2005 Arrival Date: 02/28/2024 Time: 19:55 Bed 9 Private MD: Diagnosis: UTI/ Urinary tract infection, site not specified;Acute bronchitis, unspecified Presentation: 02/27 20:11 Chief complaint: Patient states: cough, congestion for 2 weeks non fever; hoarse voice km8 starting 5 days ago; vomiting starting yesterday. Coronavirus screen: Client denies travel out of the [place] in the last 14 days. Ebola Screen: No symptoms or risks identified at this time. Initial Sepsis Screen: Does the patient meet any 2 criteria? HR > 90 bpm. No. Patient's initial sepsis screen is negative. Does the patient have a suspected source of infection? No. Patient's initial sepsis screen is negative. Risk Assessment: Do you want to hurt yourself or someone else? Patient reports no desire to harm self or others. Onset of symptoms was February 14, 2024. 20:11 Method Of Arrival: Ambulatory km8 20:11 Acuity: KARISSA 3 km8 Triage Assessment: 20:14 General: Appears in no apparent distress. comfortable, Behavior is calm, cooperative, km8 appropriate for age. Pain: Complains of pain in head Pain currently is 7 out of 10 on a pain scale. EENT: No signs and/or symptoms were reported regarding the EENT system. Neuro: Level of Consciousness is awake, alert, obeys commands, Oriented to person, place, time, situation. Cardiovascular: Reports chest pain, shortness of breath, Patient's skin is warm and dry. Respiratory: Airway is patent Respiratory effort is even, unlabored, Respiratory pattern is regular, symmetrical. GI: Abdomen is non-distended, Abd is soft and non tender Reports upper abdominal pain, nausea, vomiting. : No signs and/or symptoms were reported regarding the genitourinary system. Derm: No signs and/or symptoms reported regarding the dermatologic system. Skin is intact, is healthy with good turgor, Skin is dry, Skin is pink, warm \T\ dry. normal, Skin temperature is warm. Musculoskeletal: No signs and/or symptoms reported regarding the musculoskeletal system. Range of motion: intact in all extremities. TENTER: 20:14 LMP 02/21/2024, unknown Historical: - Allergies: 20:14 No Known Allergies; - Home Meds: 20:14 unknown anxiety medication [Active]; - PMHx: 20:14 Anxiety; - PSHx: 20:14 None; - Immunization history:: Adult Immunizations up to date. - Infectious Disease History:: Denies. - Social history:: Smoking status: Patient/guardian denies using tobacco, Stopped _ months ago 6 Patient/guardian denies using alcohol, street drugs. Screenin:14 [facility] ED Fall Risk Assessment (Adult) History of falling in the last 3 months, me1 including since admission No falls in past 3 months (0 pts) Confusion or Disorientation No (0 pts) Intoxicated or Sedated No (0 pts) Impaired Gait No (0 pts) Mobility Assist Device Used No (0 pt) Altered Elimination No (0 pt) Score/Fall Risk Level 0 - 2 = Low Risk Maintained a safe environment, Provided non-skid footwear, Hourly rounding (assess needs \T\ fall precautionary measures) done. Abuse screen: Denies threats or abuse. Nutritional screening: No deficits noted. Tuberculosis screening: No symptoms or risk factors identified. Assessment: 21:14 General: Appears comfortable, ill, well groomed, well developed, well nourished, me1 Behavior is calm, cooperative, appropriate for age, Reports cough/congestion x 2 weeks with no fever, hoarse x 5 days. n/v started yesterday.. Pain: Denies pain. Neuro: Level of Consciousness is awake, alert, obeys commands, Oriented to person, place, time, situation, Appropriate for age. Cardiovascular: Capillary refill < 3 seconds Patient's skin is warm and dry. Respiratory: Airway is patent Respiratory effort is even, unlabored, Respiratory pattern is regular, symmetrical. Respiratory: Reports cough that is non-productive, since 2 weeks ago congestion Breath sounds are diminished in left posterior lower lobe and right posterior lower lobe. GI: Reports nausea, vomiting, since yesterday. : No signs and/or symptoms were reported regarding the genitourinary system. EENT: No signs and/or symptoms were reported regarding the EENT system. Derm: Skin is intact, Skin is pink, warm \T\ dry. Musculoskeletal: No signs and/or symptoms reported regarding the musculoskeletal system. Vital Signs: 20:11 BP 132 / 96; Pulse 97; Resp 16; Temp 97.1(TE); Pulse Ox 99% on R/A; Weight 89.36 kg km8 (R); Height 5 ft. 6 in. (R); Pain 7/10; 21:18 BP 138 / 87; Pulse 83; Resp 19; Pulse Ox 96% on R/A; me1 22:00 BP 123 / 85; Pulse 81; Resp 18; Pulse Ox 97% on R/A; me1 23:00 BP 126 / 63; Pulse 78; Resp 16; Pulse Ox 99% ; me1 20:11 Body Mass Index 31.80 (89.36 kg, 167.64 cm) [facility] 20:11 Pain Scale: Adult [facility] ED Course: 20:03 Patient arrived in ED. gm2 20:13 Triage completed. 8 20:14 Arm band placed on right wrist. 8 20:17 Amanda Young is Attending Physician. ci 20:26 Luisa Lorenz, RN is Primary Nurse. me1 21:04 COVID-19 SARS RT PCR Sent. me1 21:04 Flu Sent. me1 21:04 RSV Sent. me1 21:04 Rapid Strep Sent. me1 21:04 CBC with Diff Sent. me1 21:04 CMP Sent. me1 21:04 Lipase Sent. me1 21:04 Test, Urine Sent. me1 21:04 Urinalysis w/ reflexes Sent. me1 21:04 Initial lab(s) drawn, by tn, sent to lab. Urine collected: clean catch specimen, [place] me1 colored, COVID swab sent to lab. Flu and/or RSV swab sent to lab. Strep swab sent to lab. Inserted saline lock: 22 gauge in left antecubital area, using aseptic technique. 21:05 Client placed on continuous cardiac and pulse oximetry monitoring. NIBP monitoring me1 applied. campus monitor on. Pulse ox on. NIBP on. 21:14 Patient has correct armband on for positive identification. Bed in low position. Call tn1 light in reach. Side rails up X 1. Provided Education on: POC. Verbalized understanding.. 21:14 No provider procedures requiring assistance completed. me1 21:32 XRAY Chest (1 view) In Process Unspecified. EDMS 22:31 EKG done, by ED staff, reviewed by Amanda Young. me1 23:27 IV discontinued, intact, bleeding controlled, No redness/swelling at site. Pressure me1 dressing applied. Administered Medications: 21:12 Drug: Famotidine IVP 20 mg IVP once; dilute with 10 mL 0.9% NaCl; give over 2 minutes me1 Route: IVP; Site: left antecubital; 21:49 Follow up: Response: No adverse reaction me1 21:12 Drug: Ondansetron IVP 4 mg IVP once; over 2 minutes Route: IVP; Site: left antecubital; me1 21:49 Follow up: Response: No adverse reaction; Nausea is decreased me1 21:12 Drug: NS 0.9% IV 1000 ml IV at 1000 ml once Route: IV; Rate: 1000 ml; Site: left me1 antecubital; 23:29 Follow up: IV Status: Completed infusion; IV Intake: 1000ml me1 23:29 Follow up: Response: No adverse reaction; IV Status: Completed infusion; IV Intake: me1 1000ml 23:29 Follow up: Response: No adverse reaction; IV Status: Completed infusion; IV Intake: me1 1000ml 23:29 Follow up: IV Status: Completed infusion me1 21:49 Drug: Rocephin IV 1 grams IV at calculated rate once; Given slow IV push per pharmacy me1 instructions Route: IV; Rate: calculated rate; Site: left antecubital; 22:18 Follow up: Response: No adverse reaction; IV Status: Completed infusion me1 Medication: 21:14 VIS not applicable for this client. me1 Intake: 23:29 IV: 1000ml; Total: 1000ml. me1 23:29 IV: 1000ml; Total: 2000ml. me1 23:29 IV: 1000ml; Total: 3000ml. me1 Outcome: 23:16 Discharge ordered by . ci 23:27 Discharged to home ambulatory, me1 23:27 Condition: stable 23:27 Discharge instructions given to patient, Instructed on discharge instructions, follow up and referral plans. medication usage, Demonstrated understanding of instructions, follow-up care, medications, Prescriptions given X 1, 23:32 Patient left the ED. me1 Signatures: Dispatcher [employer] Luisa Hu, OUMAR RN me1 IhAmanda khalil Ginger 2 Genesis Shine RN RN km8
[2024-02-29 00:35] VITALS: BP 126/63; TEMP 97.1; O2SAT 99
== END 2024-02-28 23:32 | disposition home or self-care (01) ==
LOC: ER 19:55
DX: J20.9 Acute bronchitis, unspecified (principal); N39.0 Urinary tract infection, site not specified; Z11.52 Encounter for screening for COVID-19
CPT/HCPCS: 96365; 96361; 93005; 87070; 85025; 81001; 36415; 81025; 87081; 83690; 80053; 87635; 87807; 87804 ×2; 71045; 96375; 99285; J2405; J7030; J0696

== ENCOUNTER 2024-06-05 00:29 | Inpatient (IN) | payer OTHER ==
--- OUTSIDE RECORDS SUMMARY | 2024-06-05 01:33 | XMS REPORT | Continuity of Care Document ---
Author Name Unknown Address [address] [place] [address] [facility] thconnect Address [address] [place] [address] Care Team Providers Care Insecticide Expert Name Role Phone Memo Hwang Primary Care Physician [phone] Shea Dominguez MD Attending Clinician [phone] XANDER HANNA Attending Clinician Unavailable Xander Burnham Attending Clinician [phone] Unknown, Attending Attending Clinician Unavailab Collins Attending Clinician UnavailAlaina Bowen MD Attending Clinician [phone] ALAINA BOOTH Attending Clinician Unavailable Alton Malloy Attending Clinician Unavailable Bryce Schrader Attending Clinician Unavailable SHEA DOMINGUEZ Attending Clinician ROMA Doss III Attending Clinician Unavaillida pickard Provider, [facility] Attending Clinician Unavailable Roma Lovell MD Attending Clinician [phone] UNKNOWN, ATTENDING Attending Clinician Unavailab taylor Doctor Unassigned, Reyno Attending Clinician U ALIRIO Luke Attending Clinician Unavailable Alirio Puckett DO Attending Clinician [phone] Rosalee Admitting Clinician Unavailab Alton Castellon Admitting Clinician Unavailable UNDEFINED Admitting Clinician Unavailable ALIRIO PUCKETT Admitting Clinician Unavailable Payers Payer Name Policy Type Policy Number Effective Date Expirati on Date Source BCBS [facility] [id number] 2022 00:00:[place] [id number] 2022 00:00:00 Problems Condition Name Condition Details Condition Category Status Onset Date Resolution Date Last Treatment Date Treating Clinician Comments Source Hyperlipid emia Hyperlipid emia Problem Active 6 00:00: 00 [facility] 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 Allergies, Adverse Reactions, Alerts Allergy Name Allergy Type Status Severity Reaction(s) Onset Date Inactive Date Treating Clinician Comments Source No Known Allergie s DA Active U 4- 00:00: 00 [facility] CAT DANDER Allergy to substanc e Active Itching, Respiratory distress [facility] Dog Dander Allergy to substanc e Active Itching, Respiratory distress [facility] NO KNOWN ALLERGIE S Drug Class Active [facility] Social History Social Habit Start Date Stop Date Quantity Comments Source [facility] of Social function 2024-02-27 00:00:00 2024-02-27 00:00:00 [facility] Exposure to SARS-CoV-2 (event) 2022-12-12 00:00:00 2022-12-22 08:43:00 Not sure [facility] Tobacco use and exposure 2022-10-27 00:00:00 2022-10-27 00:00:00 Smokeless tobacco non-user [facility] Sex assigned at 2003 00:00:00 2005 00:00:00 [facility] Smoking Status Start Date Stop Date Source Tobacco smoking consumption unknown [facility] Never smoked tobacco [facility] Medications Ordered Medication Name Filled Medication Name Start Date Stop Date Current Medication? Ordering Clinician Indication Dosage Frequency Signature (SIG) Comments Components Source albuterol 90 mcg/actuati on inhaler 03-23 00:00: 00 Yes [id number] 2{puff} INHALE 2 PUFFS EVERY 6 HOURS NEEDED FOR WHEEZING OR SHORTNESS OF BREATH [facility] escitalopra m oxalate 5 mg tablet 02-26 17:26: 49 Yes escitalopr am 5 mg tablet Take 1 tablet every day by oral route for [address] [facility] cetirizine 10 mg tablet 02-26 17:26: 49 Yes cetirizine 10 mg tablet Take 1 tablet every day by oral route in the morning for [address] [facility] codeine-gua ifenesin 10-100 mg/5 mL oral solution 02-26 00:00: 00 03-06 04:59 :00 No [id number] 5mL Take 5 mL by mouth every 6 (six) hours as needed for Cough for up to 7 days. Indication s: acute pain [facility] albuterol 90 mcg/actuati on inhaler 12-14 00:00: 00 03-23 00:00 :00 No [id number] 2{puff} Inhale 2 Puffs every 6 (six) hours as needed for Wheezing or Shortness of Breath. [facility] albuterol (PROVENTIL) 2.5 mg /3 mL (0.083 %) nebulizer solution 2.5 mg 04-21 22:00: 00 04-21 21:07 :00 No [id number] 2.5mg [facility] methylpredn isolone sod succ (SOLU-MEDRO L) injection 125 mg 04-21 21:45: 00 04-21 21:06 :00 No [id number] [facility] ipratropium (ATROVENT) 0.02 % nebulizer solution 0.5 mg 04-21 21:45: 00 04-21 21:08 :00 No [id number] .5mg Univer s [facility] budesonide- formoteroL 80-4.5 mcg/actuati on inhaler 04-21 16:13: 40 04-21 00:00 :00 No Symbicort 80 mcg-4.5 mcg/actuat ion HFA aerosol inhaler Inhale 2 puffs twice a day by inhalation route. [facility] escitalopra m oxalate 5 mg tablet 04-21 16:13: 26 Yes escitalopr am 5 mg tablet Take 1 tablet every day by oral route for [address] [facility] cetirizine 10 mg tablet 04-21 16:13: 26 Yes cetirizine 10 mg tablet Take 1 tablet every day by oral route in the morning for [address] [facility] Fluticasone Propionate 250 mcg/actuati on inhalation disk 04-21 16:13: 26 Yes Flovent Diskus 250 mcg/actuat ion powder for inhalation Inhale 1 puff twice a day by inhalation route. [facility] Fluticasone Propionate 250 mcg/actuati on inhalation disk 04-21 16:13: 26 Yes Flovent Diskus 250 mcg/actuat ion powder for inhalation Inhale 1 puff twice a day by inhalation route. [facility] ipratropium 0.02 % nebulizer solution 04-21 00:00: 00 Yes [id number] .5mg Inhale 2.5 mL every 4 (four) hours as needed for Wheezing or Shortness of Breath. [facility] montelukast (SINGULAIR) 10 mg tablet 04-21 00:00: 00 Yes [id number] 10mg Take 1 tablet by mouth in the morning. [facility] albuterol 2.5 mg /3 mL (0.083 %) nebulizer solution 04-21 00:00: 00 03-23 00:00 :00 No [id number] 2.5mg Inhale 3 mL every 4 (four) hours as needed for Shortness of Breath or Wheezing. [facility] gabapentin 300 mg capsule 03-16 00:00: 00 Yes TAKE 1 CAPSULE BY MOUTH EVERY [address] [facility] meloxicam 15 mg tablet 03-16 00:00: 00 Yes 15mg Take 1 tablet by mouth in the morning. [facility] albuterol 90 mcg/actuati on inhaler -11 00:00: 00 12-14 00:00 :00 No [id number] 2{puff} Inhale 2 Puffs every 6 (six) hours as needed for Wheezing or Shortness of Breath. [facility] ALBUTEROL 90 mcg/actuati on inhaler - 00:00: 00 02-16 00:00 :00 No [id number] INHALE 2 PUFFS EVERY 6 HOURS NEEDED FOR WHEEZING OR SHORTNESS OF BREATH [facility] azithromyci n 250 mg tablet 12-22 00:00: 00 04-21 00:00 :00 No [id number] 250mg Take 1 tablet by mouth in the morning. [facility] albuterol 90 mcg/actuati on inhaler - 00:00: 00 01-25 00:00 :00 No [id number] 2{puff} Inhale 2 Puffs every 6 (six) hours as needed for Wheezing, Shortness of Breath or Bronchospa sm. [facility] EPINEPHrine 1:1,000 (1 mg/mL) (ADRENALIN) injection 0.3 mg 12-10 06:00: 00 12-10 17:59 :00 No [id number] .3mg [facility] methylPREDN ISolone sod succ (SOLU-MEDRO L (PF)) injection 125 mg 12-10 06:00: 00 12-10 17:59 :00 No [id number] 125mg [facility] s [facility] diphenhydrA MINE (BENADRYL) 12.5 mg/5 mL solution 25 mg 12-10 06:00: 12-10 17:59 :00 No [id number] 25mg [facility] albuterol (PROVENTIL) 2.5 mg /3 mL (0.083 %) nebulizer solution 2.5 mg 12-10 06:00: 00 12-10 17:59 :00 No [id number] 2.5mg [facility] s [facility] ondansetron 4 mg disintegrat ing tablet 2021-11 00:00: 12-22 00:00 :00 No [id number] 4mg Take 1 tablet by mouth every 8 (eight) hours as needed for Nausea and Vomiting (N/V). [facility] albuterol 90 mcg/actuati on inhaler 2021-11 00:00: 00 12-22 00:00 :00 No [id number] 2{puff} Inhale 2 Puffs every 6 (six) hours as needed for Shortness of Breath or Wheezing. [facility] oseltamivir (TAMIFLU) 75 mg capsule 2021-11 00:00: 00 11-02 05:59 :00 No [id number] 75mg Take 1 capsule by mouth in the morning and 1 capsule in the evening. Do all this for [address] [facility] albuterol 2.5 mg /3 mL (0.083 %) nebulizer solution 2021-11 00:00: 00 Yes [id number] 2.5mg Inhale 3 mL every 4 (four) hours. May also nebulize one extra every [address] [facility] methylPREDN ISolone (MEDROL, HELENA,) 4 mg tablets 2021-11 00:00: 00 10-27 00:00 :00 No [id number] Take by mouth SEE-INSTRU CTIONS. follow package directions [facility] bromphenira mine-pseudo ephedrine-D M 2 mg-30 mg-10 [...] TAKE 1 TABLET BY MOUTH EVERY DAY [facility] montelukast 10 mg tablet Take 1 tablet every day by oral route for 30 days. montelukast 10 mg tablet Take 1 tablet every day by oral route for 30 days. No 1 Q1D montelukas t 10 mg tablet Take 1 tablet every day by oral route for 30 days. [facility] prednisone 20 mg tablet TAKE 2 TABLETS BY MOUTH DAILY prednisone 20 mg tablet TAKE 2 TABLETS BY MOUTH DAILY No prednisone 20 mg tablet TAKE 2 TABLETS BY MOUTH DAILY [facility] Wixela Inhub 250 mcg-50 [...] day by inhalation route for 30 days. [facility] Vital Signs Vital Name Observation Time Observation Value Comments S ource Systolic blood pressure 2024-02-27 22:23:00 135 mm[Hg] [place] [facility] Diastolic blood pressure 2024-02-27 22:23:00 84 mm[Hg] [facility] Heart rate 2024-02-27 22:23:00 99 /min [facility] Body temperature 2024-02-27 22:23:00 36.61 Freda [facility] Body height 2024-02-27 22:23:00 167.6 cm [facility] Body weight 2024-02-27 22:23:00 89.359 kg [facility] BMI 2024-02-27 22:23:00 31.80 kg/m2 [facility] Oxygen saturation in Arterial blood by Pulse oximetry 2024-02-27 22:23:00 96 /min [facility] BP Systolic 2024-02-21 00:00:00 117 mm[Hg] [facility] Height 2024-02-21 00:00:00 66 [in_i] [facility] BMI (Body Mass Index) 2024-02-21 00:00:00 32.8 kg/m2 [facility] BP Diastolic 2024-02-21 00:00:00 77 mm[Hg] [facility] Body Weight 2024-02-21 00:00:00 203 [lb_av] [facility] Body Weight 2023-09-07 00:00:00 187 [lb_av] [facility] BP Diastolic 2023-09-07 00:00:00 80 mm[Hg] [facility] BP Systolic 2023-09-07 00:00:00 120 mm[Hg] [facility] Height 2023-09-07 00:00:00 66 [in_i] [facility] BMI (Body Mass Index) 2023-09-07 00:00:00 30.2 kg/m2 [facility] BP Diastolic 2023-05-12 00:00:00 77 mm[Hg] [facility] Height 2023-05-12 00:00:00 66 [in_i] [facility] BMI (Body Mass Index) 2023-05-12 00:00:00 29 kg/m2 [facility] BP Systolic 2023-05-12 00:00:00 105 mm[Hg] [facility] Body Weight 2023-05-12 00:00:00 179.9 [lb_av] [facility] BP Diastolic 2023-04-27 00:00:00 74 mm[Hg] [facility] Height 2023-04-27 00:00:00 66 [in_i] [facility] BMI (Body Mass Index) 2023-04-27 00:00:00 27.6 kg/m2 [facility] BP Systolic 2023-04-27 00:00:00 120 mm[Hg] [facility] Body Weight 2023-04-27 00:00:00 171 [lb_av] [facility] Heart rate 2023-04-21 21:32:00 112 /min [facility] Respiratory rate 2023-04-21 21:32:00 17 /min [facility] Oxygen saturation in Arterial blood by Pulse oximetry 2023-04-21 21:32:00 96 /min [facility] Oxygen saturation in Arterial blood by Pulse oximetry 2023-04-21 21:05:00 95 /min [facility] Systolic blood pressure 2023-04-21 21:00:00 106 mm[Hg] [facility] Diastolic blood pressure 2023-04-21 21:00:00 68 mm[Hg] [facility] Heart rate 2023-04-21 21:00:00 140 /min [facility] Respiratory rate 2023-04-21 21:00:00 38 /min [facility] Body height 2023-04-21 21:00:00 167.6 cm [facility] Body weight 2023-04-21 21:00:00 78.608 kg [facility] BMI 2023-04-21 21:00:00 27.97 kg/m2 [facility] Body temperature 2023-04-21 21:00:00 37.33 Freda [facility] BP Diastolic 2023-04-20 00:00:00 60 mm[Hg] [facility] Height 2023-04-20 00:00:00 66 [in_i] [facility] BMI (Body Mass Index) 2023-04-20 00:00:00 27.6 kg/m2 [facility] Practice BP Systolic 2023-04-20 00:00:00 101 mm[Hg] [facility] Body Weight 2023-04-20 00:00:00 171 [lb_av] [facility] Systolic blood pressure 2022-12-22 14:55:00 120 mm[Hg] [facility] Diastolic blood pressure 2022-12-22 14:55:00 76 mm[Hg] [facility] Heart rate 2022-12-22 14:55:00 86 /min [facility] Body temperature 2022-12-22 14:55:00 36.61 Freda [facility] Respiratory rate 2022-12-22 14:55:00 18 /min [facility] Body weight 2022-12-22 14:55:00 80.287 kg [facility] Oxygen saturation in Arterial blood by Pulse oximetry 2022-12-22 14:55:00 96 /min [facility] Body temperature 2022-12-11 03:01:00 37.11 Freda [facility] Respiratory rate 2022-12-11 03:01:00 17 /min [facility] Body height 2022-12-11 03:01:00 167.6 cm [facility] Body weight 2022-12-11 03:01:00 76.204 kg [facility] BMI 2022-12-11 03:01:00 27.12 kg/m2 [facility] Body mass index (BMI) [Percentile] Per age and sex 2022-12-11 03:01:00 88.44 % [facility] Oxygen saturation in Arterial blood by Pulse oximetry 2022-12-11 03:01:00 93 /min [facility] Systolic blood pressure 2022-12-11 03:01:00 143 mm[Hg] [facility] Diastolic blood pressure 2022-12-11 03:01:00 85 mm[Hg] [facility] Heart rate 2022-12-11 03:01:00 145 /min [facility] Systolic blood pressure 2022-10-27 16:50:00 102 mm[Hg] [facility] Diastolic blood pressure 2022-10-27 16:50:00 66 mm[Hg] [facility] Heart rate 2022-10-27 16:49:00 115 /min [facility] Body temperature 2022-10-27 16:49:00 36.83 Freda [facility] Respiratory rate 2022-10-27 16:49:00 18 /min [facility] Body height 2022-10-27 16:49:00 167.6 cm [facility] Body weight 2022-10-27 16:49:00 76.522 kg [facility] BMI 2022-10-27 16:49:00 27.23 kg/m2 [facility] Body mass index (BMI) [Percentile] Per age and sex 2022-10-27 16:49:00 88.89 % [facility] Oxygen saturation in Arterial blood by Pulse oximetry 2022-10-27 16:49:00 97 /min [facility] BP Diastolic 2022-09-18 00:00:00 76 mm[Hg] [facility] Height 2022-09-18 00:00:00 66 [in_i] [facility] BMI (Body Mass Index) 2022-09-18 00:00:00 27.1 kg/m2 [facility] BP Systolic 2022-09-18 00:00:00 122 mm[Hg] [facility] Body Weight 2022-09-18 00:00:00 168 [lb_av] [facility] Heart rate 2022-08-22 03:02:00 88 /min [facility] Respiratory rate 2022-08-22 03:02:00 15 /min [facility] Oxygen saturation in Arterial blood by Pulse oximetry 2022-08-22 03:02:00 95 /min [facility] Systolic blood pressure 2022-08-22 03:00:00 108 mm[Hg] [facility] Diastolic blood pressure 2022-08-22 03:00:00 88 mm[Hg] [facility] Body temperature 2022-08-22 01:59:00 37.33 Freda [facility] Body height 2022-08-22 01:59:00 167.6 cm [facility] Body weight 2022-08-22 01:59:00 71.668 kg [facility] BMI 2022-08-22 01:59:00 25.50 kg/m2 [facility] Body mass index (BMI) [Percentile] Per age and sex 2022-08-22 01:59:00 83.11 % [facility] BP Systolic 2021-08-08 00:00:00 130 mm[Hg] [facility] Body Weight 2021-08-08 00:00:00 172 [lb_av] [facility] BP Diastolic 2021-08-08 00:00:00 82 mm[Hg] [facility] Height 2021-08-08 00:00:00 66 [in_i] [facility] BMI (Body Mass Index) 2021-08-08 00:00:00 27.8 kg/m2 [facility] BP Diastolic 2020-07-24 00:00:00 75 mm[Hg] [facility] BP Systolic 2020-07-24 00:00:00 113 mm[Hg] [facility] BP Diastolic 2019-06-14 00:00:00 80 mm[Hg] [facility] Height 2019-06-14 00:00:00 66 [in_i] [facility] BMI (Body Mass Index) 2019-06-14 00:00:00 25.8 kg/m2 [facility] BP Systolic 2019-06-14 00:00:00 124 mm[Hg] [facility] Body Weight 2019-06-14 00:00:00 160 [lb_av] [facility] Procedures Procedure Date / Time Performed Performing Clinician Source POCT MOLECULAR STREP 2024-02-27 22:53:00 Unknown, Lindy connors [facility] SPRIOMETRY: PRE AND POST BRONCHODILATION 2023-04-23 00:00:00 [facility] spirometry, pre and post bronchodilation 2023-04-23 00:00:00 [facility] Pelvis Repair 2023-03-08 00:00:00 [facility] [id number] 2023-03-06 00:00:00 CYN [facility] [id number] 2023-03-06 00:00:00 CYN [facility] POCT MOLECULAR STREP 2022-12-22 15:20:00 Shea Salazar [facility] POCT MOLECULAR FLU 2022-10-27 16:51:00 Unknown, Attend ing [facility] ASSIGNMENT OF BENEFITS 2022-10-27 16:40:10 Docto r Unassigned, Reyno [facility] XR CHEST 1 VW 2022-08-22 02:13:53 Alirio Puckett [facility] Plan of Care Planned Activity Planned Date Details Comments Source Instructions [facility] Encounters Start Date/Time End Date/Time Encounter Type Admission Type Attending Clinicians Care Facility Care Department Encounter ID Source 2024-06-01 00:00:00 2024-06-01 00:00:00 Refill Kimberly cook [facility] [id number] [id number] [id number] [facility] 2024-03-29 00:00:00 2024-03-29 16:47:34 Telephone Kimberly cook [facility] [id number] 350.1.13.10 [id number] [facility] 2024-03-22 00:00:00 2024-03-23 15:42:09 Refill Kimberly cook [facility] [id number] [id number] [id number] [facility] 2024-02-27 17:20:00 2024-02-27 18:20:15 Outpatient R XANDER HANNA [facility] [id number] [facility] 2024-02-27 17:20:00 2024-02-27 18:20:15 Urgent Care Xander Hanna Unknown, [facility]ending [facility] [id number] 350.1.13.10 [id number] [facility] 2024-02-21 00:00:00 2024-02-21 00:00:00 DEL Castellon: [address] [facility] [address], [place] [address] , Ph. VFP [place] [facility] - [place] VM_[facility] ([facility] [id number] [facility] 2024-01-03 00:00:00 2024-01-03 00:00:00 Outpatient Fiesinger_T _HOU_MD VFP VFP [id number] [facility] 2023-12-13 00:00:00 2023-12-13 00:00:00 Jose LauCheyanneShea Ashford [facility] [id number] [id number] [id number] [facility] 2023-10-02 00:00:00 2023-10-02 00:00:00 Outpatient Fiesinger_T _HOU_MD VFP VFP [id number] [facility] 2023-09-07 00:00:00 2023-09-07 00:00:00 Outpatient Fiesinger_T _HOU_MD VFP VFP [id number] [facility] 2023-09-07 00:00:00 2023-09-07 00:00:00 Outpatient VFP VFP [id number] [facility] 2023-09-07 00:00:00 2023-09-07 00:00:00 DEL Castellon: [address] [place] [phone] , Ph. VFP [place] - [facility] - [place] - [facility] ([place]) [id number] [facility] 2023-06-14 00:00:00 2023-06-14 00:00:00 Outpatient Fiesinger_T _HOU_MD VFP VFP [id number] [facility] 2023-05-29 00:00:00 2023-05-29 00:00:00 Outpatient Fiesinger_T _HOU_MD VFP VFP [id number] [facility] 2023-05-12 00:00:00 2023-05-12 00:00:00 Outpatient Fiesinger_T _HOU_MD VFP VFP [id number] [facility] 2023-05-12 00:00:00 2023-05-12 00:00:00 Outpatient VFP VFP [id number] [facility] 2023-05-12 00:00:00 2023-05-12 00:00:00 Sarah Seth PA: [address] [phone] , Ph. VFP [place] - [facility] - [place] [facility] ([facility]) [id number] [facility] 2023-04-30 00:00:00 2023-04-30 00:00:00 Alaina Wilkins [facility] [id number] [id number] [id number] [facility] 2023-04-27 00:00:00 2023-04-27 00:00:00 Outpatient Fiesinger_T _HOU_MD VFP VFP [id number] [facility] 2023-04-27 00:00:00 2023-04-27 00:00:00 DEL Castellon: [address] [phone] , Ph. VFP [place] - [facility] - [place] [facility] ([facility]) [id number] [facility] 2023-04-23 00:00:00 2023-04-23 00:00:00 Outpatient Fiesinger_T _HOU_MD VFP VFP [id number] [facility] 2023-04-23 00:00:00 2023-04-23 00:00:00 DEL Castellon: [address] [phone] , Ph. VFP [place] - [facility] - [place] - [facility] ([place]) [id number] [facility] 2023-04-21 15:40:00 2023-04-21 16:23:44 Outpatient R ALAINA BOOTH [facility] [id number] [facility] 2023-04-21 15:40:00 2023-04-21 16:23:44 Urgent Care Alaina Booth Unknown, Attending [facility] [id number] [id number] [id number] [facility] 2023-04-21 00:00:00 2023-04-21 00:00:00 Refill Alaina Booth [facility] [id number] [id number] [id number] [facility] 2023-04-20 00:00:00 2023-04-20 00:00:00 Outpatient Fiesinger_T _HOU_MD VFP VFP [id number] [facility] 2023-04-20 00:00:00 2023-04-20 00:00:00 Outpatient Fiesinger_T _HOU_MD VFP VFP [id number] [facility] 2023-04-20 00:00:00 2023-04-20 00:00:00 Sarah Seth, PA: [address] [place] [phone] , Ph. VFP [place] - [facility] - [place] - [facility] ([place]) [id number] [facility] 2023-04-17 00:00:00 2023-04-17 00:00:00 Outpatient Fiesinger_T _HOU_MD VFP VFP [id number] [facility] 2023-04-17 00:00:00 2023-04-17 00:00:00 Outpatient VFP VFP [id number] [facility] 2023-04-17 00:00:00 2023-04-17 00:00:00 Outpatient Fiesinger_T _HOU_MD VFP VFP [id number] Bakari pickard 2023-04-14 00:00:00 2023-04-14 00:00:00 Outpatient Rachel ROSA VFP VFP [id number] Bakari pickard 2023-03-12 00:00:00 2023-03-12 00:00:00 Refill Kimberly cook [facility] 1.2.840.114 350.1.13.10 4.2.7.2.[id number] [facility] 2023-03-04 18:35:00 2023-03-07 13:43:00 Inpatient EM Alton Malloy [facility] [id number] [facility] 2023-03-04 09:00:00 2023-03-04 17:00:00 Emergency EM Bryce Schrader [facility] [id number] [facility] 2023-02-16 00:00:00 2023-02-16 00:00:00 Refill Kimberly cook [facility] 1.2.840.114 350.1.13.10 4.2.7.2.[id number] [facility] 2023-01-22 00:00:00 2023-01-22 00:00:00 Refill Kimberly cook [facility] 1.2.840.114 350.1.13.10 4.2.7.2.[id number] [facility] 2022-12-27 00:00:00 2022-12-27 00:00:00 Outpatient Rachel VFP VFP [id number] Bakari pickard 2022-12-22 08:40:00 2022-12-22 09:33:41 Outpatient R KIMBERLY COOK [facility] [id number] [facility] 2022-12-22 08:40:00 2022-12-22 09:33:41 Office Visit Shea Taylor [facility] 1.2840.114 350.1.13.10 4.2.7.2.[id number] [facility] 2022-12-22 00:00:00 2022-12-22 00:00:00 [facility] ([facility] 1.2840.114 350.1.13.10 4.2.7.2.[id number] [facility] 2022-12-10 20:40:00 2022-12-10 21:15:04 Outpatient ROMA SHINE III [facility] [id number] [facility] 2022-12-10 20:40:00 2022-12-10 21:15:04 Urgent Care Provider, [facility] Unknown, Attending Roma Lovell [facility] 1..840.114 350.1.13.10 4.2.7.2.[id number] [facility] 2022-12-10 20:30:00 2022-12-10 20:30:00 Outpatient R VIRIDIANA, JACINDA [facility] [id number] [facility] 2022-11-22 00:00:00 2022-11-22 00:00:00 Outpatient Fiesinger_T VFP VFP [id number] [facility] 2022-11-18 00:00:00 2022-11-18 00:00:00 Jose Booth Alaina [facility] 1..840.114 350.1.13.10 4.2.7.2.[id number] [facility] 2022-10-27 10:40:00 2022-10-27 11:05:11 Outpatient ALAINA MARTIN [facility] [id number] [facility] 2022-10-27 10:40:00 2022-10-27 11:05:11 Urgent Care LeobardoAlaina Unknown, Attending [facility] 1.2.840.114 350.1.13.10 4.2.7.2.[id number] [facility] 2022-10-27 00:00:00 2022-10-27 00:00:00 Orders Only Doctor Unassigned, Reyno [facility] 1.2.840.114 350.1.13.10 4.2.7.2.[id number] [facility] 2022-10-27 00:00:00 2022-10-27 00:00:00 Letter (Out) Provider, [facility] 1.2.840.114 350.1.13.10 4.2.7.2.[id number] [facility] 2022-09-18 00:00:00 2022-09-18 00:00:00 Outpatient Fiesinger_T VFP VF [id number] [facility] 2022-09-18 00:00:00 2022-09-18 00:00:00 Coty Hernandez MD: [id number] [facility], [address], [place] [address] , Ph. VFP [place] - [facility] - [place] - VM_HOU_Troy woody [facility] [id number] [facility] 2022-09-15 00:00:00 2022-09-15 00:00:00 Outpatient Fiesinger_T VFP VFP [id number] [facility] 2022-09-08 00:00:00 2022-09-08 00:00:00 Outpatient Fiesinger_T VFP VFP [id number] [facility] 2022-08-21 20:56:00 2022-08-21 22:15:00 Emergency X ALIRIO PUCKETT [facility] ERT [id number] [facility] 2022-08-21 20:56:00 2022-08-21 22:15:00 Emergency Alirio Puckett [facility] 1.2.840.114 350.1.13.10 4.2.7.2.[id number] [facility] 2021-09-23 08:11:00 2021-09-23 08:11:00 Outpatient Fiesinger_T VFP VFP [id number] [facility] 2021-09-04 01:56:00 2021-09-04 01:56:00 Outpatient Fiesinger_T VFP VFP [id number] [facility] 2021-08-29 06:51:00 2021-08-29 06:51:00 Outpatient Fiesinger_T VFP VFP [id number] [facility] 2021-08-08 05:19:00 2021-08-08 05:19:00 Outpatient Fiesinger_T VFP VFP [id number] [facility] 2021-08-08 00:00:00 2021-08-08 00:00:00 Memo Hwang MD: [id number] [facility], [address], [place] [address] , Ph. VFP [place] - [facility] Medical - _HOU_Troy annalise Chris [id number] [facility] 2021-06-03 03:43:00 2021-06-03 03:43:00 Outpatient Fiesinger_T VFP VFP [id number] [facility] 2021-06-03 03:43:00 2021-06-03 03:43:00 Outpatient Fiesinger_T VFP VFP [id number] [facility] 2021-06-03 03:43:00 2021-06-03 03:43:00 Outpatient VFP VFP [id number] [facility] 2020-08-09 01:03:00 2020-08-09 01:03:00 Outpatient Fiesinger_T VFP VFP [id number] [facility] 2020-07-26 08:53:00 2020-07-26 08:53:00 Outpatient Fiesinger_T VFP VFP [id number] [facility] 2020-07-25 08:47:00 2020-07-25 08:47:00 Outpatient Fiesinger_T VFP VFP [id number] [facility] 2020-07-24 06:00:00 2020-07-24 06:00:00 Outpatient Fiesinger_T VFP VFP [id number] [facility] 2020-07-24 00:00:00 2020-07-24 00:00:00 Memo Hwang MD: [id number] [facility] [facility] [address], [place] [address] , Ph. VFP [place] - [facility] - _NAOMI_Troy woody [facility] [id number] [facility] 2020-03-08 06:51:00 2020-03-08 06:51:00 Outpatient Fiesinger_T VFP VFP [id number] [facility] 2020-02-15 04:13:00 2020-02-15 04:13:00 Outpatient Fiesinger_T VFP VFP [id number] [facility] 2020-01-30 09:30:00 2020-01-30 09:30:00 Outpatient Fiesinger_T VFP VFP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
[2024-06-05] MEDS ORDERED: IPRATROPIUM BROM 0.5MG/2.5ML ONE ×4 (01:40→14:07)
[2024-06-05] MEDS ORDERED: ALBUTEROL 2.5 MG/3 ML NEB SOL ONE ×3 (01:40→08:14)
[2024-06-05] MEDS ORDERED: Magnesium Sulfate 2gm IVPB 2 G/50 ML BAG IV ONE (02:36)
[2024-06-05] MEDS ORDERED: METHYLPREDNISOLONE 125 MG INJ ONE ×3 (02:36→14:34)
[2024-06-05] MEDS ORDERED: NA CHLORIDE 0.9% 1,000 ML ONE (02:36)
[2024-06-05 02:52] LABS: Absolute Lymphocytes (CBC) 0.6 K/uL (0.7-4.9); Absolute Monocytes 0.1 K/uL (0.1-1.3); Absolute Neutrophil 14.5 K/uL (1.8-8.0); Basophils % 0.1 % (0-1.3); Hematocrit 44.6 % (36.0-45.0); Hemoglobin 14.5 g/dL (12.0-15.0); Lymphocytes % 3.8 % (15.3-44.8); MCH 28.4 pg (27.0-35.0); MCHC 32.5 g/dL (32.0-36.0); MCV 87.3 fL (80-100); MPV 8.9 fL (7.6-11.3); Monocytes % 0.5 % (3.3-12.3); Neutrophils % 95.6 % (41.7-73.7); Platelets 352 thou/uL (152-406); RBC Red Blood Cell Count 5.12 M/uL (3.86-4.86); Red Cell Distribution Width 13.2 % (12.1-15.2)
[2024-06-05 03:01] LABS: ALT/SGPT 34 U/L (13-56); AST/SGOT 14 U/L (15-37); Albumin 4.4 g/dL (3.4-5.0); Alkaline Phosphatase 77 U/L (45-117); Anion Gap 15.1 mEq/L (5.0-15.0); BUN Blood Urea Nitrogen 5 mg/dL (7-18); Bicarbonate 20 mEq/L (21-32); Bilirubin Total 0.4 mg/dL (0.2-1.0); Creatine Phosphokinase 158 U/L (26-192); Globulin 4.4 g/dL (2.3-3.5); Glomerular Filtration Rate 66 ml/min (=/>90); Glucose Level 166 mg/dL (74-106); Potassium 3.1 mEq/L (3.5-5.1); Protein, Total 8.8 g/dL (6.4-8.2); Sodium Level 138 mEq/L (136-145)
[2024-06-05 03:04] LABS: Bilirubin Direct < 0.2 mg/dL (0-0.2); Bilirubin Indirect, Calculated 0.2 mg/dL (0.2-0.8)
--- NOTE | 2024-06-05 03:41 | EDPHYS ---
Physician Documentation [facility] Name: Gudelia Mckee Age: 18 yrs Sex: Female : 2005 Arrival Date: 06/05/2024 Time: 00:29 Bed 8 Private MD: ED Physician Kofi Bustamante HPI: 06/05 00:42 This 18 yrs old Other Female presents to ER via Unassigned with complaints of Asthma sp4 Exacerbation. 07:15 18-year-old female presents with acute wheezing diffuse and also moderate to severe sp4 dyspnea. 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 - Infectious Disease History:: Denies. - Social history:: Smoking status: Reported history of juuling and/or vaping. - Family history:: not pertinent. ROS: 07:15 Constitutional: Negative for fever, chills, and weight loss, positive for dyspnea and sp4 wheeze 07:15 All other systems are negative, Exam: 07:15 Constitutional: This is a well developed, well nourished patient who is awake, alert, sp4 and in no acute distress. Head/Face: Normocephalic, atraumatic. Eyes: Pupils equal round and reactive to light, extra-ocular motions intact. Lids and lashes normal. Conjunctiva and sclera are not injected. Cornea within normal limits. Periorbital areas with no swelling, redness, or edema. ENT: Nares patent. No nasal discharge, no septal abnormalities noted. Tympanic membranes are normal and external auditory canals are clear. Oropharynx with no redness, swelling, or masses, exudates, or evidence of obstruction, uvula midline. Mucous membranes moist. Neck: Trachea midline, no thyromegaly or masses palpated, and no cervical lymphadenopathy. Supple, full range of motion without nuchal rigidity, or vertebral point tenderness. Chest/axilla: Normal chest wall appearance and motion. Nontender with no deformity. No lesions are appreciated. Cardiovascular: Regular rate and rhythm with a normal S1 and S2. No gallops, murmurs, or rubs. Normal PMI, no JVD. No pulse deficits. Respiratory: Lungs have equal breath sounds bilaterally, positive dyspnea, positive tachypnea, positive diffuse expiratory wheezing Abdomen/GI: Soft, with normal bowel sounds. No distension or tympany. No guarding or rebound. No evidence of tenderness throughout. Back: No spinal tenderness. No costovertebral tenderness. Skin: Warm, dry with normal turgor. Normal color with no rashes, no lesions, and no evidence of cellulitis. MS/ Extremity: Pulses equal, no cyanosis. Neurovascular intact. Full, normal range of motion. Neuro: Awake and alert, GCS 15, oriented to person, place, time, and situation. Cranial nerves II-XII grossly intact. Motor strength 5/5 in all extremities. Sensory grossly intact. Psych: Awake, alert, with orientation to person, place and time. Behavior, mood, and affect are within normal limits Vital Signs: 01:44 BP 123 / 69; Pulse 133; Resp 26 S; Temp 97.5(O); Pulse Ox 91% on R/A; Weight 86.18 kg; ha1 Height 5 ft. 6 in. ; 03:00 BP 117 / 60; Pulse 138; Resp 26 S; Pulse Ox 90% on R/A; ha1 03:47 BP 139 / 74; Pulse 134; Resp 29; Pulse Ox 96% on 4 lpm NC; al5 04:00 BP 122 / 67; Pulse 126; Resp 21; Pulse Ox 96% on 6 lpm NC; al5 04:30 BP 151 / 77; Pulse 131; Resp 21; Pulse Ox 99% on 6 lpm NC; al5 01:44 Body Mass Index 30.67 (86.18 kg, 167.64 cm) ha1 Bethune Coma Score: 07:15 Eye Response: spontaneous(4). Motor Response: obeys commands(6). Verbal Response: sp4 oriented(5). Total: 15. MDM: 00:42 Patient medically screened. sp4 07:17 Differential diagnosis: acute asthma, exercise-induced asthma, reactive airway, CHF, sp4 anaphylaxis, URI, foreign body. Data reviewed: vital signs, nurses notes, lab test result(s), radiologic studies, plain films. 06/05 01:46 Order name: BMP; Complete Time: 03:39 sp4 06/05 01:46 Order name: CBC with Diff sp4 06/05 01:46 Order name: CPK; Complete Time: 03:39 sp4 06/05 01:46 Order name: Hepatic Function; Complete Time: 03:39 sp4 06/05 01:46 Order name: Test, Serum; Complete Time: 03:39 sp4 06/05 03:09 Order name: Manual Differential EDMS 06/05 05:35 Order name: Urinalysis w/ reflexes EDMS 06/05 05:35 Order name: CBC with Automated Diff EDMS 06/05 05:35 Order name: CBC with Automated Diff EDMS 06/05 05:35 Order name: Comprehensive Metabolic Panel EDMS 06/05 05:35 Order name: Comprehensive Metabolic Panel EDMS 06/05 10:17 Order name: ABG Arterial Blood Gas EDMS 06/05 01:46 Order name: Chest Single View XRAY sp4 06/05 06:23 Order name: BIPAP 4 06/05 01:46 Order name: Cardiac monitoring; Complete Time: 04:54 sp4 06/05 01:46 Order name: IV Saline Lock; Complete Time: 02:20 sp4 06/05 01:46 Order name: Labs collected and sent; Complete Time: 02:20 sp4 06/05 01:46 Order name: O2 Per Protocol; Complete Time: 02:35 sp4 06/05 01:46 Order name: O2 Sat Monitoring; Complete Time: 02:35 sp4 Administered Medications: 01:44 Drug: DuoNeb Nebulize (3:1) (2.5 mg - 0.5 mg) 3 ml Nebulizer once Route: Nebulizer; ha1 04:55 Follow up: Response: No adverse reaction al5 02:34 Drug: DuoNeb Nebulize (3:1) (2.5 mg - 0.5 mg) 3 ml Nebulizer once Route: Nebulizer; vc1 04:54 Follow up: Response: No adverse reaction al5 02:55 Drug: MethylPrednisoLONE IVP 125 mg IVP once Route: IVP; Site: left forearm; ha1 04:54 Follow up: Response: No adverse reaction al5 03:00 Drug: Magnesium Sulfate IVPB 2 grams IVPB once over 2 hrs Route: IVPB; Infused Over: 2 ha1 hrs; Site: left forearm; 04:54 Follow up: Response: No adverse reaction; IV Intake: 100ml al5 03:00 Drug: NS 0.9% IV 1000 ml IV at 250 ml/hr continuous Route: IV; Rate: 250 ml/hr; Site: ha1 left forearm; 06:37 Drug: Albuterol Inhalation 2.5 mg Inhalation once Route: Inhalation; al5 06:37 Drug: Ipratropium Inhalation Aerosol 0.5 mg Inhalation once Route: Inhalation; al5 06:52 Drug: ALPRAZolam PO Tablet 0.5 mg PO once Route: PO; al5 Disposition: 06:34 Critical Care:. sp4 Disposition Summary: 06/05/24 03:40 Hospitalization Ordered Notes: Hospitalization Status: Observation sp4 Provider: Adalberto Ruano sp4 Condition: Stable sp4 Problem: new sp4 Symptoms: have improved sp4 Bed/Room Type: Standard sp4 Location: Telemetry/MedSurg (observation)(06/05/24 15:18) kb3 Room Assignment: [facility](06/05/24 15:18) kb3 Diagnosis - Moderate persistent asthma with (acute) exacerbation sp4 Forms: - Medication Reconciliation Form sp4 - SBAR form sp4 - Leadership Thank You Letter sp4 Critical care time excluding procedures: 06:34 Critical care time: Bedside Care: 36 minutes, Consultation: 12 minutes, Family sp4 Intervention: 12 minutes. Total time: 60 minutes Signatures: Dispatcher [employer] EDMS Gwen Edwards, RN RN Ana Palmer RN RN 1 Mary Gerard, RN RN ha1 Haleigh Benson RN OUMAR canela3 Kofi Bustamante MD MD sp4 Alaina Caldwell RN RN al5 Corrections: (The following items were deleted from the chart) 01:47 01:47 Chest Single View+RAD.RAD.BRZ ordered. EDMS EDMS 03:49 03:40 Telemetry/MedSurg (observation) sp4 cg 03:49 03:40 sp4 cg 10:02 10:02 Arterial Blood Gas+RC.LAB.BRZ ordered. EDMS EDMS 15:18 03:49 [facility] ER HOLD cg kb3 15:18 03:49 ERHOLD- cg kb3
--- NOTE | 2024-06-05 03:41 | ER ---
Nurse's Notes [facility] Name: Gudelia Mckee Age: 18 yrs Sex: Female : 2005 Arrival Date: 06/05/2024 Time: 00:29 Bed 8 Private MD: Diagnosis: Moderate persistent asthma with (acute) exacerbation Presentation: 06/05 01:44 Chief complaint: Patient states: I have been having asthma exacerbation since ha1 yesterday. Today, I went to urgent care and got a breathing treatment and IM steroids but nothing seems to help. Coronavirus screen: Vaccine status: Patient reports being unvaccinated. Ebola Screen: No symptoms or risks identified at this time. Initial Sepsis Screen: Does the patient meet any 2 criteria? No. Patient's initial sepsis screen is negative. Does the patient have a suspected source of infection? No. Patient's initial sepsis screen is negative. Risk Assessment: Do you want to hurt yourself or someone else? Patient reports no desire to harm self or others. Onset of symptoms was June 05, 2024. 01:44 Method Of Arrival: Ambulatory ha1 01:44 Acuity: KARISSA 3 ha1 Triage Assessment: 01:32 General: Appears uncomfortable, Behavior is cooperative, anxious. Pain: Denies pain. ha1 Neuro: Level of Consciousness is awake, alert, obeys commands, Oriented to person, place, time, situation. Cardiovascular: Reports shortness of breath, Capillary refill Patient's skin is warm and dry. Respiratory: Reports shortness of breath at rest on exertion Airway is patent Respiratory effort is even, unlabored, Respiratory pattern is regular, symmetrical, Breath sounds with wheezes bilaterally. GI: No signs and/or symptoms were reported involving the gastrointestinal system. : No signs and/or symptoms were reported regarding the genitourinary system. Musculoskeletal: Circulation, motion, and sensation intact. Range of motion: intact in all extremities. CLINICAL CONSULTANT: 04:53 unknown al5 Historical: - Allergies: 01:48 No Known Allergies; ha1 - PMHx: 01:48 Anxiety; Asthma; ha1 - Immunization history:: Adult Immunizations up to date. - Infectious Disease History:: Denies. - Social history:: Smoking status: Reported history of juuling and/or vaping. - Family history:: not pertinent. Screenin:49 Abuse screen: Denies threats or abuse. Denies injuries from another. Nutritional ha1 screening: No deficits noted. Tuberculosis screening: No symptoms or risk factors identified. 04:52 [facility] ED Fall Risk Assessment (Adult) History of falling in the last 3 months, al5 including since admission No falls in past 3 months (0 pts) Confusion or Disorientation No (0 pts) Intoxicated or Sedated No (0 pts) Impaired Gait No (0 pts) Mobility Assist Device Used No (0 pt) Altered Elimination No (0 pt) Score/Fall Risk Level 0 - 2 = Low Risk Oriented to surroundings, Maintained a safe environment, Hourly rounding (assess needs \T\ fall precautionary measures) done. Assessment: 01:45 Reassessment: see triage assessment. ha1 03:00 Reassessment: Patient and/or family updated on plan of care and expected duration. Pain ha1 level reassessed. Dr. Jackson notified. Connected to nasal canula O2 at 95% on 3L nasal canula Patient states symptoms have not improved. 03:47 Reassessment: Patient appears in no apparent distress at this time. No changes from al5 previously documented assessment. Patient and/or family updated on plan of care and expected duration. Pain level reassessed. Patient is alert, oriented x 3, equal unlabored respirations, skin warm/dry/pink. 04:52 Reassessment: Patient appears in no apparent distress at this time. No changes from al5 previously documented assessment. Patient and/or family updated on plan of care and expected duration. Pain level reassessed. Patient is alert, oriented x 3, equal unlabored respirations, skin warm/dry/pink. 06:08 Reassessment: Patient appears in no apparent distress at this time. No changes from al5 previously documented assessment. Patient and/or family updated on plan of care and expected duration. Pain level reassessed. Patient is alert, oriented x 3, equal unlabored respirations, skin warm/dry/pink. Vital Signs: 01:44 BP 123 / 69; Pulse 133; Resp 26 S; Temp 97.5(O); Pulse Ox 91% on R/A; Weight 86.18 kg; ha1 Height 5 ft. 6 in. ; 03:00 BP 117 / 60; Pulse 138; Resp 26 S; Pulse Ox 90% on R/A; ha1 03:47 BP 139 / 74; Pulse 134; Resp 29; Pulse Ox 96% on 4 lpm NC; al5 04:00 BP 122 / 67; Pulse 126; Resp 21; Pulse Ox 96% on 6 lpm NC; al5 04:30 BP 151 / 77; Pulse 131; Resp 21; Pulse Ox 99% on 6 lpm NC; al5 01:44 Body Mass Index 30.67 (86.18 kg, 167.64 cm) ha1 Tadeo Coma Score: 07:15 Eye Response: spontaneous(4). Motor Response: obeys commands(6). Verbal Response: sp4 oriented(5). Total: 15. ED Course: 00:31 Patient arrived in ED. mr 00:42 Kofi Bustamante MD is Attending Physician. sp4 01:48 Triage completed. ha1 01:55 Radiology exam delayed due to patient receiving breathing treatment at this time. ml 02:19 Missed attempt(s): 22 gauge in left antecubital area. Bleeding controlled, band aid rv1 applied, catheter tip intact. 02:19 Inserted saline lock: 20 gauge in left forearm, using aseptic technique. Blood rv1 collected. Flushed with 10 mL NS. 02:20 Test, Serum Sent. rv1 02:20 BMP Sent. rv1 02:20 CBC with Diff Sent. rv1 02:20 CPK Sent. rv1 02:20 Hepatic Function Sent. rv1 02:50 Chest Single View XRAY In Process Unspecified. EDMS 03:40 Adalberto Ruano MD is Hospitalizing Provider. sp4 03:44 Alaina Caldwell RN is Primary Nurse. al5 04:53 No provider procedures requiring assistance completed. al5 04:53 Patient admitted, IV remains in place. al5 04:53 Arm band placed on right wrist. Patient placed in an exam room, on a stretcher. al5 04:53 Patient has correct armband on for positive identification. Placed in gown. Bed in low al5 position. Call light in reach. Side rails up X 1. Provided Education on: processes and procedures. 06:52 BIPAP Sent. al5 14:55 Primary Nurse role handed off by Alaina Caldwell, OUMAR ld1 14:55 Tala Resendiz RN is Primary Nurse. ld1 Administered Medications: 01:44 Drug: DuoNeb Nebulize (3:1) (2.5 mg - 0.5 mg) 3 ml Nebulizer once Route: Nebulizer; ha1 04:55 Follow up: Response: No adverse reaction al5 02:34 Drug: DuoNeb Nebulize (3:1) (2.5 mg - 0.5 mg) 3 ml Nebulizer once Route: Nebulizer; vc1 04:54 Follow up: Response: No adverse reaction al5 02:55 Drug: MethylPrednisoLONE IVP 125 mg IVP once Route: IVP; Site: left forearm; ha1 04:54 Follow up: Response: No adverse reaction al5 03:00 Drug: Magnesium Sulfate IVPB 2 grams IVPB once over 2 hrs Route: IVPB; Infused Over: 2 ha1 hrs; Site: left forearm; 04:54 Follow up: Response: No adverse reaction; IV Intake: 100ml al5 03:00 Drug: NS 0.9% IV 1000 ml IV at 250 ml/hr continuous Route: IV; Rate: 250 ml/hr; Site: ha1 left forearm; 06:37 Drug: Albuterol Inhalation 2.5 mg Inhalation once Route: Inhalation; al5 06:37 Drug: Ipratropium Inhalation Aerosol 0.5 mg Inhalation once Route: Inhalation; al5 06:52 Drug: ALPRAZolam PO Tablet 0.5 mg PO once Route: PO; al5 Medication: 04:53 VIS not applicable for this client. al5 Intake: 04:54 IV: 100ml; Total: 100ml. al5 Outcome: 03:40 Decision to Hospitalize by Provider. sp4 16:18 Patient left the ED. bd Signatures: Dispatcher [employer] EDMS Brit Borrego, Karla, Reg Reg mr Caryl Kelley Tala Lemons RN RN ld1 Ana Ivy RN RN vc1 Mary Gerard RN RN ha1 Iva Espinal rvKofi Streeter MD MD sp4 Alaina Caldwell RN RN al5 Corrections: (The following items were deleted from the chart) 03:44 02:00 Reassessment: see triage assessment ha1 ha1 03:47 03:00 Reassessment: Patient and/or family updated on plan of care and expected ha1 duration. Pain level reassessed. Dr. Jackson notified Patient states symptoms have not improved. ha1
[2024-06-05 03:58] LABS: Band Neutrophils 3 % (0-1); Differential Total Cells Count 100; Lymphocytes 1 % (15-42); Monocytes 0 % (0-10); Segmented Neutrophils 96 % (40-80)
[2024-06-05 03:59] LABS: Blood Morphology Comment NOT SEEN (NOT SEEN); Platelet Estimate ADEQ
[2024-06-05] MEDS ORDERED: ALBUTEROL 2.5 MG/3 ML NEB SOL NEB PRN (05:31)
[2024-06-05] MEDS ORDERED: ACETAMINOPHEN 325 MG TABLET PO PRN (05:31)
[2024-06-05] MEDS ORDERED: ONDANSETRON 4 MG/2 ML VIAL IV PRN (05:31)
--- NOTE | 2024-06-05 05:31 | P.HP ---
Certification for Inpatient Patient admitted to: Inpatient With expected LOS: >2 Midnights Practitioner: I am a practitioner with admitting privileges, knowledge of patient current condition, hospital course, and medical plan of care. Services: Services provided to patient in accordance with Admission requirements found in Title 42 Section 412.3 of the Code of Federal Regulations Patient History Date of Service: 06/05/24 Reason for admission: Shortness of breath History of Present Illness: 18-year-old female no significant past medical history other than asthma brought to ER with shortness of breath and wheezing. Patient stated that her symptoms started 1 day ago with upper respiratory tract symptoms and started having shortness of breath. Tried inhalers with and without much relief. No fever or chills. No nausea vomiting or diarrhea. No sick contacts. She still feels tightness in the chest. Associated with cough. With mucoid expectoration. Denies any hemoptysis or epistaxis. Patient was assessed in the ER and was admitted for asthma exacerbation. Home medications list reviewed: Yes - Past Medical/Surgical History Past Medical History: Reviewed- Non-Contributory Past Surgical History: Reviewed- Non-Contributory - Family History Family History: Reviewed- Non-Contributory - Social History Smoking Status: Never smoker Review of Systems 10-point ROS is otherwise unremarkable Physical Examination - Vital Signs Temperature: 98.2 F Blood Pressure: 112/72 Pulse: 99 Respirations: 20 Pulse Ox (%): 94 - Physical Exam General: Alert, In no apparent distress, Oriented x3 HEENT: Atraumatic, Normocephalic Neck: Supple, No Thyromegaly Respiratory: Diminished, Crackles/rales, Expiratory wheezes Cardiovascular: No edema, Regular rate/rhythm, Normal S1 S2 Capillary refill: <2 Seconds Gastrointestinal: Soft and benign, W/out hepatomegaly Musculoskeletal: No clubbing, No swelling Integumentary: No rashes, No tenderness/swelling Neurological: Normal speech, Normal strength at 5/5 x4 extr, Cranial nerves 3-12 intact, Normal reflexes 2+ Lymphatics: No axilla or inguinal lymphadenopathy - Studies Laboratory Data (last 24 hrs) 06/05/24 06/05/24 02:18 02:18 WBC 15.20 H Hgb 14.5 Hct 44.6 Plt Count 352 Sodium 138 Potassium 3.1 L BUN 5 L Creatinine 1.21 H Glucose 166 H Total Bilirubin 0.4 AST 14 L ALT 34 Alkaline Phosphatase 77 Assessment and Plan - Problems (Diagnosis) (1) Asthma exacerbation Current Visit: Yes Status: Acute - Plan Asthma exacerbation Monitor closely on telemetry Started on bronchodilators Oxygen supplementation Steroids added Chest x-ray findings noted Pulmonology consult if not better in the a.m. Hypokalemia Monitor closely under telemetry Replace potassium Anxiety Started on antiacid medications as needed GI/DVT prophylaxis Advanced directive full code Discharge Plan: Home Plan to discharge in: 48 Hours - Advance Directives Does patient have a Living Will: No Does patient have a Durable POA for Healthcare: No - Code Status/Comfort Care Code Status: Full Code Time Spent Managing Pts Care (In Minutes): 48
[2024-06-05] MEDS ORDERED: HYDROCODONE/APAP 5/325 MG TAB PO PRN (05:34)
[2024-06-05] MEDS ORDERED: hydrOXYzine HCL 25 MG TAB PO PRN (05:34)
[2024-06-05] MEDS: METHYLPREDNISOLONE 125 MG INJ IV SCH (06:00)
[2024-06-05] MEDS ORDERED: ALPRAZOLAM 0.5 MG TABLET ONE (06:47)
[2024-06-05] MEDS: ALBUTEROL 2.5 MG/3 ML NEB SOL NEB SCH (07:00)
[2024-06-05] MEDS ORDERED: LORazepam 2 MG/ML VIAL ONE (07:30)
[2024-06-05] MEDS: IPRATROPIUM BROM 0.5MG/2.5ML NEB SCH (07:40)
[2024-06-05] MEDS: LORazepam 2 MG/ML VIAL IV ONE (07:41)
[2024-06-05 07:51] VITALS: BMI 30.6
[2024-06-05] MEDS ORDERED: ENOXAPARIN 40 MG/0.4 ML SQ ONE (08:13)
[2024-06-05] MEDS: LEVALBUTEROL 1.25 MG/3 ML NEB NEB ONE (08:39)
[2024-06-05] MEDS: LEVALBUTEROL 1.25 MG/3 ML NEB NEB SCH (08:40)
[2024-06-05] MEDS ORDERED: LEVALBUTEROL 0.63 MG/3 ML NEB ONE (08:49)
[2024-06-05] MEDS: ENOXAPARIN 40 MG/0.4 ML SQ SCH (08:53)
[2024-06-05 10:15] LABS: Arterial Blood Carboxyhemoglob 0.7 % (0-1.5); Blood Gas Oxyhemoglobin 89.7 % (94-97); Blood Gas THB 14.1 g/dl (12-18); Blood O2 Saturation 91.8 % (92-98.5)
[2024-06-05] MEDS: AZITHROMYCIN 250 MG TAB PO SCH (12:36)
--- NOTE | 2024-06-05 12:38 | P.CNS ---
Date of Consult: 06/05/24 Reason for Consult: Asthma exacerbation Chief Complaint: Shortness of breath History of Present Illness: PT is 18 yrs old AW Asthma exacerbation past 2 days. Doign better .Frequent exacerbation Allergies No Known Allergies Allergy (Unverified 06/05/24 07:25) - Past Medical/Surgical History -: Asthma Past Surgical History: Patient denies surgical history - Social History Smoking Status: Never smoker Review of Systems 10-point ROS is otherwise unremarkable Physical Examination Temp Pulse Resp BP Pulse Ox 98.2 F 131 H 18 148/82 H 95 06/05/24 05:31 06/05/24 07:55 06/05/24 07:55 06/05/24 07:55 06/05/24 07:55 General: Alert, In no apparent distress, Oriented x3 Respiratory: Expiratory wheezes Cardiovascular: No edema, Regular rate/rhythm, Normal S1 S2 Gastrointestinal: Normal bowel sounds, Soft and benign, Non-distended Laboratory Data (last 24 hrs) 06/05/24 06/05/24 02:18 02:18 WBC 15.20 H Hgb 14.5 Hct 44.6 Plt Count 352 Sodium 138 Potassium 3.1 L BUN 5 L Creatinine 1.21 H Glucose 166 H Total Bilirubin 0.4 AST 14 L ALT 34 Alkaline Phosphatase 77 - Problems (1) Asthma exacerbation Current Visit: Yes Status: Acute Plan: Aw wexacerbation CXRY clear. Need inhlaed steroids at home poss triple therapy. CXRY clear . SAt Ok. Agree with steroids and Nebs for now. Add Zithromax, Peak flows. Poss discharge amLabs reviewed, Elevated creatinine Qualifiers: Asthma severity: severe
[2024-06-05] MEDS: NS KCL 20MEQ 20 MEQ/1,000 ML BAG IV SCH (13:00)
[2024-06-05] MEDS ORDERED: LORazepam 2 MG/ML VIAL IV PRN (13:48)
--- NOTE | 2024-06-05 13:49 | P.PN ---
Date of Service: 06/05/24 Subjective: Admitted overnight Requiring BiPAP for respiratory distress/hypoxic respiratory failure ROS: 10 point ROS as noted above, otherwise negative Physical exam GEN: Alert, oriented, NAD HEENT: Normal conjunctiva, sclera anicteric CV: Tachycardic,no edema Pulm: Tachypnea, on BiPAP with expiratory wheezing ABD: Soft, nontender, nondistended MSK: No joint tenderness Integumentary: No rashes Neuro: Normal speech, normal affect Vitals reviewed Problem List Acute hypoxic respiratory failure secondary to asthma with exacerbation Continue with as needed BiPAP Continue nebs, steroids Pulmonology consultedfollowing Added Dulera VTE: Lovenox Code: Full Dispo: 2 days Time Spent Managing Pts Care (In Minutes): 35
[2024-06-05] MEDS ORDERED: LEVALBUTEROL 1.25 MG/3 ML NEB ONE (14:07)
[2024-06-05] MEDS ORDERED: AZITHROMYCIN 250 MG TAB ONE (14:35)
[2024-06-05] MEDS ORDERED: NS KCL 20MEQ 1,000 ML IV ONE (14:35)
[2024-06-06 06:05] LABS: Absolute Lymphocytes (CBC) 0.9 K/uL (0.7-4.9); Absolute Monocytes 0.5 K/uL (0.1-1.3); Absolute Neutrophil 17.4 K/uL (1.8-8.0); Basophils % 0.1 % (0-1.3); Hemoglobin 12.8 g/dL (12.0-15.0); Lymphocytes % 4.8 % (15.3-44.8); MCH 28.1 pg (27.0-35.0); MCV 87.8 fL (80-100); MPV 9.3 fL (7.6-11.3); Monocytes % 2.8 % (3.3-12.3); Neutrophils % 92.3 % (41.7-73.7); Platelets 298 thou/uL (152-406); RBC Red Blood Cell Count 4.56 M/uL (3.86-4.86); Red Cell Distribution Width 13.2 % (12.1-15.2)
[2024-06-06 06:25] LABS: Albumin 3.4 g/dL (3.4-5.0); Albumin/Globulin Ratio 0.9 (1.1-1.8); Anion Gap 7.3 mEq/L (5.0-15.0); Bilirubin Total 0.4 mg/dL (0.2-1.0); Globulin 3.6 g/dL (2.3-3.5); Potassium 4.3 mEq/L (3.5-5.1)
--- NOTE | 2024-06-06 11:20 | RAD REPORT ---
EXAM DESCRIPTION: RAD - Chest Single View - 06/05/2024 2:49 am CLINICAL HISTORY: Chest Pain COMPARISON: None TECHNIQUE: Chest 1 View AP FINDINGS: Trachea midline. Heart size and pulmonary vessels within normal limits. Lungs clear without evidence of consolidation, mass, or significant pulmonary edema. No significant pleural effusion or pneumothorax. Mild symmetric bilateral lower lungs/chest density most likely represents overlying breast/chest wall attenuation artifact. Bones unremarkable. Small vertical lucencies overlying inferior left chest. IMPRESSION: Small vertical lucencies overlying inferior left chest. This may represent air collections (subcutaneous emphysema). Electronically signed by: Kwabena Cantu MD 06/05/2024 04:07 AM CDT RP Due to temporary technical issues with the PACS/Fluency reporting system, reports are being signed by the in house radiologist without review as a courtesy to ensure prompt reporting. The interpreting r adiologist is fully responsible for the content of the report.
--- NOTE | 2024-06-06 12:13 | P.PN ---
Subjective Date of Service: 06/06/24 Chief Complaint: Asthma exacerbation Subjective: Improving (Patient is doing much better speaking in full sentences) Review of Systems Unremarkable Physical Examination - Vital Signs Temperature: 97.5 F Blood Pressure: 113/56 Pulse: 74 Respirations: 18 Pulse Ox (%): 97 - Physical Exam General: Alert, Oriented x3 Neck: Supple Respiratory: Clear to auscultation bilaterally Cardiovascular: No edema, Regular rate/rhythm, Normal S1 S2 Assessment And Plan - Current Problems (Diagnosis) (1) Asthma exacerbation Current Visit: Yes Status: Acute Plan: Patient is 18 years of age admitted with asthma exacerbation stable to be discharged home on long-acting beta agonist and a steroid inhaler combination dried powder inhalation did not like using Advair Diskus at home using aerosol inhaler instead she does have prednisone 20 mg a day can take it for for 5 days throughout as needed and Zithromax 5 mg daily for a week signs stable Qualifiers: Asthma severity: severe
[2024-06-06 13:34] VITALS: O2SAT 21
[2024-06-06] MEDS: DULERA 200/5 (MOMETASONE/FORMOTEROL) INHALER IH SCH (15:23)
--- NOTE | 2024-06-06 15:40 | P.DS ---
Admission Date: 06/05/24 Discharge Date: 06/06/24 Disposition: ROUTINE DISCHARGE Discharge Condition: GOOD Reason for Admission: Asthma exacerbation Consultations: PulmonologyDrKiera Rivera Brief History of Present Illness: Patient was admitted to the hospital for severe asthma exacerbation requiring BiPAP use Hospital Course: Problem List Acute hypoxic respiratory failure secondary to asthma with exacerbation Patient was admitted to the hospital for severe asthma exacerbation, she initially required BiPAP but was able to be weaned from BiPAP to nasal cannula. Today she has been weaned off nasal cannula and is tolerating room air. She has been able to ambulate around the floor without significant dyspnea or hypoxia. She was seen by pulmonology who recommends initiation of Advair HFA as well as 7 days of p.o. Zithromax. These have been sent to her pharmacy. Continue using Ventolin inhaler as needed as well as her nebulizer. Please follow-up with pulmonologyDr. Jimenez in the next 1 to 2 weeks Vital Signs/Physical Exam: Temp Pulse Resp BP Pulse Ox 97.5 F 74 18 113/56 L 97 06/06/24 12:13 06/06/24 12:13 06/06/24 12:13 06/06/24 12:13 06/06/24 12:13 General: Alert, In no apparent distress, Oriented x3 HEENT: Atraumatic, PERRLA, EOMI Neck: Supple, JVD not distended Respiratory: Clear to auscultation bilaterally, Normal air movement Cardiovascular: Regular rate/rhythm, Normal S1 S2 Gastrointestinal: Normal bowel sounds, No tenderness Musculoskeletal: No tenderness Integumentary: No rashes Neurological: Normal speech, Normal tone, Normal affect Laboratory Data at Discharge: WBC 18.80 thou/uL (4.3-10.9) H 06/06/24 05:28 Hgb 12.8 g/dL (12.0-15.0) D 06/06/24 05:28 Hct 40.0 % (36.0-45.0) 06/06/24 05:28 Plt Count 298 thou/uL (152-406) 06/06/24 05:28 Sodium 139 mEq/L (136-145) 06/06/24 05:28 Potassium 4.3 mEq/L (3.5-5.1) D 06/06/24 05:28 BUN 10 mg/dL (7-18) 06/06/24 05:28 Creatinine 0.82 mg/dL (0.55-1.02) 06/06/24 05:28 Glucose 132 mg/dL (74-106) H 06/06/24 05:28 Total Bilirubin 0.4 mg/dL (0.2-1.0) 06/06/24 05:28 AST 17 U/L (15-37) 06/06/24 05:28 ALT 29 U/L (13-56) 06/06/24 05:28 Alkaline Phosphatase 76 U/L (45-117) 06/06/24 05:28 Home Medications: Albuterol Inhaler [Ventolin Inhaler*] 2 puff IH Q6H PRN 06/05/24 Norgestimate-Ethinyl Estradiol [Estarylla 0.25-0.035 mg Tablet] 1 each PO DAILY 06/05/24 Azithromycin [Zithromax] 500 mg PO DAILY #7 tab 06/06/24 Fluticasone Propion/Salmeterol [Advair Hfa 115-21 Mcg Inhaler] 2 puff IH BID #1 inh 06/06/24 New Medications: Fluticasone Propion/Salmeterol [Advair Hfa 115-21 Mcg Inhaler] 2 puff IH BID #1 inh Azithromycin [Zithromax] 500 mg PO DAILY #7 tab Physician Discharge Instructions: Patient was admitted to the hospital for severe asthma exacerbation, she initially required BiPAP but was able to be weaned from BiPAP to nasal cannula. Today she has been weaned off nasal cannula and is tolerating room air. She has been able to ambulate around the floor without significant dyspnea or hypoxia. She was seen by pulmonology who recommends initiation of Advair HFA as well as 7 days of p.o. Zithromax. These have been sent to her pharmacy. Continue using Ventolin inhaler as needed as well as her nebulizer. Please follow-up with pulmonologyDrKiera Jimenez in the next 1 to 2 weeks Diet: Regular Activity: Ad carlo Followup: Bud Rivera MD [ACTIVE - CAN ADMIT] - NONE,NONE [Primary Care Provider] - 1-2 Weeks Time spent managing pt's care (in minutes): 35
[2024-06-06 16:21] VITALS: BP 124/61; TEMP 97.6
--- NOTE | 2024-06-06 17:52 | RAD REPORT ---
[facility] 5[facility]21 pm CLINICAL HISTORY: Sub Q emphysema COMPARISON: Chest Single View dated 06/05/2024; Chest Single View dated 02/28/2024 TECHNIQUE: Portable AP view of the chest. FINDINGS: The lungs are clear. No pneumothorax or effusion. Heart is normal in size. Progressive so ft tissue emphysematous changes in the base of the neck more so on the left. Trace pneumomediastinum now seen along the left heart border. IMPRESSION: Progressive soft tissue emphysema in the base of the neck more so on the left. New trace pneumomediastinum seen along the left heart border.
== END 2024-06-06 18:05 | disposition home or self-care (01) | DRG 189 ==
LOC: ER 00:29 → ERHOLD 05:31 → 2ND 15:24
PROVIDERS: ADMIT Family Medicine; ATTEND Hospitalist
PROC: 4A033R1 Measurement of Arterial Saturation, Peripheral, Percutaneous Approach (ICD-10-PCS; principal; 2024-06-05)
PROC: 5A09357 Assistance with Respiratory Ventilation, Less than 24 Consecutive Hours, Continuous Positive Airway Pressure (ICD-10-PCS; 2024-06-05)
DX: J96.01 Acute respiratory failure with hypoxia (principal); J45.51 Severe persistent asthma with (acute) exacerbation; T79.7XXA Traumatic subcutaneous emphysema, initial encounter; E87.6 Hypokalemia; F41.9 Anxiety disorder, unspecified
CPT/HCPCS: 36415; 36600; 71045; 80048; 80053; 80076; 82550; 82805; 84703; 85025; 94640; 94660; 94760; 96374; 96375; 99285; J1650; J2919; J3475; J3480; J3535; J7030; J7613; J7614; J7644